=== PATIENT | male | born 1970 | race Caucasian/White ===

== ENCOUNTER 2019-08-19 18:04 | Inpatient (IN) ==
[2019-08-19 19:07] LABS: Basophils # (auto) 0.05 K/uL (0-0.2); Basophils % (auto) 0.4 %; Eosinophils # (auto) 0.23 K/uL (0-0.5); Hematocrit (blood only) 41.1 % (42-52); Hemoglobin 14.7 g/dL (14.0-18.0); Immature Granulocytes # (auto) 0.03 K/uL (0.00-0.02); Immature Granulocytes % (auto) 0.3 %; Lymphocytes # (auto) 2.78 K/uL (1.2-3.4); Mean Corpuscular Hemoglobin 32.1 pg (25-34); Mean Corpuscular Hgb Conc 35.8 g/dL (32-36); Mean Corpuscular Volume 89.7 fL (80-100); Mean Platelet Volume 9.3 fL (7.4-10.4); Monocytes # (auto) 0.93 K/uL (0.11-0.59); Neutrophils # (auto) 7.57 K/uL (1.4-6.5); Neutrophils % (auto) 65.3 %; Platelet Count 275 K/uL (130-400); RDW Coefficient of Variation 12.7 % (11.5-14.5); RDW Standard Deviation 41.6 fL (36.4-46.3); Red Blood Count 4.58 M/uL (4.7-6.1); White Blood Count 11.59 K/uL (4.8-10.8)
[2019-08-19 19:31] LABS: Acetaminophen < 2 ug/ml (10-30); Albumin Level 4.2 gm/dl (3.4-5.0); BUN Creatinine Ratio 16.7 (10-20); Calcium 9.6 mg/dl (8.5-10.1); Creatinine Clr Calc Pharmacy 71.7 ml/min; Est GFR (African American) 93.7; Est GFR (Non-African American) 80.9; Potassium 3.7 mmol/L (3.5-5.1); Salicylate < 1.7 mg/dl (2.8-20)
[2019-08-19 19:41] LABS: Albumin Globulin Ratio 1.3 (0.9-2); Bilirubin,Total 0.3 mg/dl (0.2-1); Globulin 3.3 gm/dl (2.5-4.0); Thyroid Stimulating Hormone 2.05 uIu/ml (0.300-4.500); Total Protein 7.5 gm/dl (6.4-8.2)
[2019-08-19 20:04] LABS: Appearance Urine Clear (Clear); Bilirubin Urine Negative (Negative); Blood Urine Negative (Negative); Color Urine Yellow; Glucose Urine UA Negative (Negative); Ketones Urine Trace (Negative); Leukocyte Esterase Urine Negative (Negative); Nitrite Urine Negative (Negative); Protein Urine Negative (Negative); Specific Gravity Urine 1.012 (1.000-1.030); Urobilinogen Urine Negative (Negative); pH Urine 5.5 (4.5-7.5)
[2019-08-19 20:46] LABS: Amphetamines+Metham, Urine Neg (Neg); Barbiturates, Urine Neg (Neg); Benzodiazepine, Urine Neg (Neg); Cocaine, Urine Neg (Neg); MDMA (Ecstacy), Urine Neg (Neg); Methadone, Urine Neg (Neg); Opiate, Urine Neg (Neg); Phencyclidine, Urine Neg (Neg)
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
[2019-08-19] MEDS ORDERED: LORazepam 1 MG TAB SL STA (22:54)
[2019-08-19] MEDS ORDERED: LORazepam 0.5 MG TAB ONE (22:56)
[2019-08-20] MEDS ORDERED: LORazepam 1 MG TAB ONE (00:58)
[2019-08-20] MEDS ORDERED: LORazepam 1 MG TAB SL STA (00:58)
[2019-08-20] MEDS ORDERED: BISMUTH SUBSALICYLATE PER ML OMNICELL CHARGE PO PRN (02:43)
[2019-08-20] MEDS ORDERED: ALUMINUM/MAGNESIUM SUSP 30 ML UDC PO PRN (02:43)
[2019-08-20] MEDS ORDERED: MAGNESIUM HYDROXIDE SUSP 30 ML UDC PO PRN (02:43)
[2019-08-20] MEDS ORDERED: SODIUM CHLORIDE 0.65% NA SOLN 45 ML (OCEAN) PRN (02:43)
[2019-08-20] MEDS: OLANZapine 5 MG TABLET PO PRN ×2 (07:14→13:17)
[2019-08-20] MEDS: ACETAMINOPHEN 325 MG TAB PO PRN (10:46)
--- NOTE | 2019-08-20 11:16 | History & Physical ---
Date of Service August 20, 2019 Impression / Recommendations Impression 49-year-old gentleman with what appears to be a long-standing history of mental illness who has so far never had contact with [facility] behavioral health, presently on a 302 commitment following ER presentation last evening for mental health evaluation. Admission labs are fairly unremarkable including drug screen. No imaging done. Patient demonstrating significant delusional preoccupation, hallucinations, and these are impacting his ability to appreciate his illness, circumstances, and to make informed treatment decisions. Patient may require medications over objection and we will proceed with second physician recommendation if necessary. Presently he requires inpatient psychiatric hospitalization for safety, monitoring, and treatment. (1) Psychosis: 08/20 -Patient admitted on an involuntary commitment to the behavioral health unit. He will be maintained on regular safety checks with twice daily vitals. We will initially try to minimize stimulation until he is able to appropriately interact in the milieu -I attempted to educate him about circumstances, implications of 302, and answer questions however pt poorly able to engage logically due to paranoia -will consider potential need for additional medical w/w as more becomes known - he does not appear to be in withdrawal. UDS negative. -We will offer olanzapine 5 mg p.o. twice daily for psychosis and 5mg q6h prn (DNE 20mg in 24h) -Will utilize Haldol 5 mg IM, 2 mg Ativan, 1 mg Cogentin every 6 hours as needed for behavioral emergency -We will expand database as able Psychosis type: unspecified psychosis type Qualified Code(s): F29 - Unspecified psychosis not due to a substance or known physiological condition (2) Hypertension: 08/20 -Denies history of hypertension. Significant BP elevation in the ER improved following Ativan -Twice daily vitals for now -We will temporarily offer Ativan 1 mg p.o. every 4 hours as needed for anxiety Inventory Assets Strengths: Medically healthy, able to communicate Needs: Provision of safety, medication management Risk Factors Assessment Male: Yes : Yes Health Problems: No Mental Health Diagnoses: Yes Previous Psychiatric Hospitalization: Yes Protective Factors Assessment : No Responsible for Young Children: No Employed: No Stable Relationships: No Supportive Family: No Good Rapport with Provider: No Psychiatric History Identifying Data KENDAL PAIGE is a 49-year-old M who currently lives alone and was admitted on 08/20/19 02:19 on a 302 involuntary commitment for psychosis. Chief Complaint "[]". History of Present Illness Patient admitted on a 302 involuntary commitment through the ER. Per ER note 08/19/2019, patient presented for mental health evaluation. Petitioning statement indicating patient uncommonly leaves his house, lost a lot of weight in the past month, plays loud music and screams. Reportedly calling people at a nearby car dealership "on [place] [employer]" recently and indicated that he was going to kill them. Police were called and then called again. The report is that he was provoking fights. Reportedly he believes others are spying on him with drones. Patient reported to ER provider that his neighbors were harassing him, that he can read their minds, he indicated a plot in his own mind to get rid of him. He believed his neighbor was employed by his father whom he does not talk to. Indicated that he has lived here for 3 years and needs to solve a case of a missing person whom he believes the spirit of and habits his home. He mentioned that he smoked cigarettes to get rid of demons. Stated that he is not a violent person but will fight if necessary. States he has killed 12 people in his mind. Reported multiple prior hospitalizations for sleep deprivation which she stated was due to technology. Only noted home medication was Propecia. Past medical history denied. Review of systems is negative. He was medically cleared apart from elevated blood pressure which improved significantly following 2 mg of Ativan. He was initially resistant to p.o. medications. Per ER physician, when informed of 302 he requested to be euthanized instead. When I was called about this patient overnight I advised he receive a dose of Zyprexa in the ER prior to transport to the unit due to his agitation, active psychosis, and unwillingness to comply with treatment recommendations in the ER however it appears he was brought up to the [facility] and did not receive the 5 mg of olanzapine until 0714 this morning. He has not been physically aggressive. His 302 is up on August 24 at 22:12. He is grossly psychotic with significant delusional thought content, paranoia, and this impacts his willingness to participate in psychiatric interview this morning. He asserts that I know more than I am telling him and seems in disbelief that I have never heard his name before. He asks me about Crystal Robert, the [employer] student who went missing many years ago now. He states that he is the reason that she went missing because he last saw her 2 years before she disappeared. He then later reports that he has seen her twice since she disappeared, once walking around town and once just her head on a shelf. He admits that this is unusual but offers no explanation. He also reports that her spirit is with him all the time, is with him presently. He expresses a belief that people can see through his eyes, make him say things and do things. He reports that this is happening all over [place] now and there is nothing to be done about it. He denies that he has been violent or hurt anyone however he later states that he is killed 12 people with his mind but that does not count because it cannot be proven. He describes stress at home as "coming to me" and seems to feel victimized by his neighbors. He reports that his neighbor "forced me to call him nigger over and over again and I am the one that ends up here?" He does not perceive need for mental health treatment. He endorses believe the people can read his thoughts. He describes systemized delusions about being a fighter and the [employer], being recruited by Shalonda from the band [employer], and that Jatin Quan now has killed people because of him. He states that there is nothing wrong with him, that he has no mental or physical health problems. He does acknowledge that he has seen a psychiatrist in the past in [place], last perhaps 3 years ago, but denies that he has needed medication for treatment. He states that it was very not nice to meet me today and seems to perceive that I am part of a conspiracy against him. Past Psychiatric History Previous Psych History: Unknown and patient presently unwilling to provide. Current Psychiatric Diagnosis: Psychosis NOS Outpatient Services: None Previous Psych Admissions: Denies this morning however he reported in the ER t hat he had previously been hospitalized for sleep deprivation Past Medication Trials: Declines to describe recollection of treatment Past Head Trauma/Neuro History History of Concussion/Seizure: No Allergies Allergy/AdvReac Type Severity Reaction Status Date / Time No Known Allergies Allergy Unverified 08/19/19 19:13 Home Medications Home Medications Medication Instructions Recorded Confirmed Type finasteride [Propecia] 1 mg PO DAILY 08/19/19 08/19/19 History Family History Family History of: Refuses To Discuss Family Mental Health History Comment: "They are all really bad people" Reports multiple family members with mental health issues but will not further describe Alcohol History Hx of Alcohol Use Over the Past 12 Months: Yes ("sometimes but not often") Smoking Use Have You Smoked or Used Tobacco Products in the Last 30 Days: Yes Smoking Status: Current some day smoker Substance History Hx of Prescription Med Misuse Over the Past 12 Months: No Hx of Over the Counter Med Misuse Over the Past 12 Months: No Hx of Inhalent Misuse Over the Past 12 Months: No Hx of Organic Substance Use Over the Past 12 Months: No Hx of Illegal Substances/Street Drug Use Over Past 12 Months: No Problems as a Result of Past Substance Use: None Identified Personal History Living Arrangements: Apartment ([facility]) Highest Grade Completed: College Employment Status: Unknown Beliefs That Will Affect Care: None Patient History Medical History Sleep deprivation Family History (Updated 08/20/19 @ 13:18 by Fortunato Mcdonald MD) Other Mental health problem Social History Preferred Language: Tajik Communication Ability: Effective Wringer And Setter Required: No Beliefs That Will Affect Care: None Feels Safe at Home: Yes Smoking Status: Current some day smoker Review of Systems Review of Systems: Unobtainable due to mental health condition (Patient felt to be an unreliable historian at present. He denies any pain or acute physical concerns but unwilling to participate in full review of systems) Physical Exam Psychiatric: Orientation: alert and + guarded; + uncooperative Apperance: + disheveled Eye Contact: + fair eye contact Motor Behavior: + psychomotor agitation Speech: + abnormal rate/rhythm/volume of speech (Speech is rapid, overproductive but not quite pressured) Affect: + angry affect Suspicious "I do not have a mood. I am happy all the time" Thought Process: + looseness of associations and + perseveration; + thought process not clear or coherent Thought Content: + paranoid, + delusions, + thought insertion and + thought broadcasting Suicidal Thoughts: denies suicidal thoughts Homicidal Thoughts: denies homicidal thoughts (He denies plan to harm others but reports ability to and states that God will take vengeance) He denies hallucinations however he appears to be responding to auditory hallucinations and describes lik anabell visual hallucinations Cognition: language grossly intact; + recent memory not intact, + remote memory not intact and + attention not intact Insight: + poor insight Judgement: + poor judgement Vital Signs (Past 24 Hours): Last Vital Signs Temp 36.3 C L 08/20/19 06:38 Pulse 107 H 08/20/19 06:38 Resp 16 08/20/19 06:38 BP 151/81 H 08/20/19 06:38 Pulse Ox 99 08/20/19 02:49 Results & Data Laboratory Results Laboratory Results - last 24 hr 08/19/19 08/19/19 08/19/19 18:48 18:48 18:48 WBC 11.59 H RBC 4.58 L Hgb 14.7 Hct 41.1 L MCV 89.7 MCH 32.1 MCHC 35.8 RDW Std Deviation 41.6 RDW Coeff of Tami 12.7 Plt Count 275 MPV 9.3 Immature Gran % (Auto) 0.3 Neut % (Auto) 65.3 Lymph % (Auto) 24.0 [place] % (Auto) 8.0 Eos % (Auto) 2.0 Baso % (Auto) 0.4 Immature Gran # (Auto) 0.03 H Neut # (Auto) 7.57 H Lymph # (Auto) 2.78 [place] # (Auto) 0.93 H Eos # (Auto) 0.23 Baso # (Auto) 0.05 Sodium 137 Potassium 3.7 Chloride 105 Carbon Dioxide 24 Anion Gap 8.0 BUN 18 Creatinine 1.06 Est Cr Clr Drug Dosing 71.7 Est GFR ( Amer) 93.7 Est GFR (Non-Af Amer) 80.9 BUN/Creatinine Ratio 16.7 Glucose 95 Calcium 9.6 Total Bilirubin 0.3 AST 30 ALT 32 Alkaline Phosphatase 48 Total Protein 7.5 Albumin 4.2 Globulin 3.3 Albumin/Globulin Ratio 1.3 TSH 2.050 Urine Color Urine Appearance Urine pH Ur Specific [place] Urine Protein Urine Glucose (UA) Urine Ketones Urine Blood Urine Nitrite Urine Bilirubin Urine Urobilinogen Ur Leukocyte Esterase Salicylates < 1.7 L Urine Opiates Screen Ur Methadone, Qual Acetaminophen < 2 L Urine Barbiturates Ur Phencyclidine (PCP) U Amphetamin/Meth Scrn MDMA (Ecstasy) Screen U Benzodiazepines Scrn Ur Cocaine Metabolite U Marijuana (THC) Screen Ethyl Alcohol mg/dL 08/19/19 08/19/19 08/19/19 18:48 19:40 19:40 WBC RBC Hgb Hct MCV MCH MCHC RDW Std Deviation RDW Coeff of Tami Plt Count MPV Immature Gran % (Auto) Neut % (Auto) Lymph % (Auto) [place] % (Auto) Eos % (Auto) Baso % (Auto) Immature Gran # (Auto) Neut # (Auto) Lymph # (Auto) [place] # (Auto) Eos # (Auto) Baso # (Auto) Sodium Potassium Chloride Carbon Dioxide Anion Gap BUN Creatinine Est Cr Clr Drug Dosing Est GFR ( Amer) Est GFR (Non-Af Amer) BUN/Creatinine Ratio Glucose Calcium Total Bilirubin AST ALT Alkaline Phosphatase Total Protein Albumin Globulin Albumin/Globulin Ratio TSH Urine Color Yellow Urine Appearance Clear Urine pH 5.5 Ur Specific [place] 1.012 Urine Protein Negative Urine Glucose (UA) Negative Urine Ketones Trace H Urine Blood Negative Urine Nitrite Negative Urine Bilirubin Negative Urine Urobilinogen Negative Ur Leukocyte Esterase Negative Salicylates Urine Opiates Screen Neg Ur Methadone, Qual Neg Acetaminophen Urine Barbiturates Neg Ur Phencyclidine (PCP) Neg U Amphetamin/Meth Scrn Neg MDMA (Ecstasy) Screen Neg U Benzodiazepines Scrn Neg Ur Cocaine Metabolite Neg U Marijuana (THC) Screen Neg Ethyl Alcohol mg/dL < 3.0 Current Inpatient Medications Current Inpatient Medications: Current Inpatient Medications Acetaminophen (Tylenol) 650 mg PO Q4H PRN PRN Reason: Headache or Minor Fever Stop: 09/19/19 02:42 Last Admin: 08/20/19 10:46 Dose: 650 mg Documented by: Al Hydrox/Mg Hydrox/Simethicone (Maalox) 30 ml PO Q4H PRN PRN Reason: GI Upset Stop: 09/19/19 02:42 Bismuth Subsalicylate (Kaopectate) 15 ml PO PRN PRN PRN Reason: Loose Stool Stop: 09/19/19 02:42 Hydroxyzine HCl (Vistaril) 50 mg PO HSZ PRN PRN Reason: Insomnia Stop: 09/19/19 02:49 Hydroxyzine HCl (Vistaril) 25 mg PO Q4H PRN PRN Reason: Anxiety Stop: 09/19/19 02:42 Magnesium Hydroxide (Milk Of Magnesia) 30 ml PO DAILY PRN PRN Reason: Constipation Stop: 09/19/19 02:42 Olanzapine (Zyprexa) 5 mg PO Q6 PRN PRN Reason: Psychosis Stop: 09/19/19 05:59 Last Admin: 08/20/19 07:14 Dose: 5 mg Documented by: Sodium Chloride ([place] Nasal) 1 - 2 sprays NA PRN PRN PRN Reason: Nasal Dryness/Congestion Stop: 09/19/19 02:42
[2019-08-20] MEDS ORDERED: LORazepam 1 MG TAB PO PRN (13:31)
[2019-08-20] MEDS ORDERED: BENZTROPINE MESYLATE 1 MG/ML 2 ML AMP IM PRN (13:32)
[2019-08-20] MEDS ORDERED: HALOPERIDOL LACTATE 5 MG/ML 1 ML VIAL IM PRN (13:32)
[2019-08-20] MEDS ORDERED: LORazepam 2 MG/ML VIAL (IM USE) IM PRN (13:32)
[2019-08-20] MEDS: OLANZapine 5 MG TABLET PO SCH (22:26)
[2019-08-21] MEDS: ACETAMINOPHEN 325 MG TAB PO PRN (03:51)
--- NOTE | 2019-08-21 09:34 | Psychiatric Progress Note ---
Date of Service August 21, 2019 Impression / Recommendations Impression 49-year-old gentleman with what appears to be a long-standing history of mental illness who has so far never had contact with [facility] behavioral health, presently on a 302 commitment following ER presentation last evening for mental health evaluation. Admission labs are fairly unremarkable including drug screen. No imaging done. Patient demonstrating significant delusional preoccupation, hallucinations, and these are impacting his ability to appreciate his illness, circumstances, and to make informed treatment decisions. Patient may require medications over objection and we will proceed with second physician recommendation if necessary. Presently he requires inpatient psychiatric hospitalization for safety, monitoring, and treatment. (1) Psychosis: 08/20 -Patient admitted on an involuntary commitment to the behavioral health unit. He will be maintained on regular safety checks with twice daily vitals. We will initially try to minimize stimulation until he is able to appropriately interact in the milieu -I attempted to educate him about circumstances, implications of 302, and answer questions however pt poorly able to engage logically due to paranoia -will consider potential need for additional medical w/w as more becomes known - he does not appear to be in withdrawal. UDS negative. -We will offer olanzapine 5 mg p.o. twice daily for psychosis and 5mg q6h prn (DNE 20mg in 24h) -Will utilize Haldol 5 mg IM, 2 mg Ativan, 1 mg Cogentin every 6 hours as needed for behavioral emergency -We will expand database as able 08/21 - Unfortunately patient appears likely to refuse antipsychotic treatment and may ultimately require medications over objection. Presently, in my opinion, the patient is felt to lack the capacity to make informed treatment decisions due to psychosis and associated delusional/illogical thought process and content. In my opinion medications over objection would be a reasonable and appropriate treatment intervention at this time. - will offer ativan 0.5mg po qhs tonight for sleep/agitation (2) Hypertension: 08/20 -Denies history of hypertension. Significant BP elevation in the ER improved following Ativan -Twice daily vitals for now -We will temporarily offer Ativan 1 mg p.o. every 4 hours as needed for anxiety 08/21 -As above, patient refusing medications at present but agrees to consider antihypertensive if blood pressure remains elevated this evening at which time we could consider a beta-bernie or PHILLY inhibitor if he is willing Inventory Assets Strengths: Medically healthy, able to communicate Needs: Provision of safety, medication management Risk Factors Assessment Male: Yes : Yes Health Problems: No Mental Health Diagnoses: Yes Previous Psychiatric Hospitalization: Yes Protective Factors Assessment : No Responsible for Young Children: No Employed: No Stable Relationships: No Supportive Family: No Good Rapport with Provider: No Interval History Chief Complaint "I am being attacked". Review of Systems Notes denies ETOH use at home Sleep Information Total Hours of Sleep: 7.5 Sleep Comments: half of total sleep on 11-29 and half on 07-28 up to the bathroom multiple times Meal Information Percent Meal Consumed - Breakfast: 100 Percent Meal Consumed - Lunch: 100 Percent Meal Consumed - Dinner: 75 Subjective Subjective Patient was seen & assessed and interval progress reviewed with treatment team. Per staff, patient tolerated group poorly yesterday. Became more paranoid, agitated, received people in the group and staff were trying to fight him. He did not become physically aggressive. Blood pressures have been elevated. He was compliant with nighttime olanzapine yesterday but refused this morning. He is interviewed in the hallway in the company of nursing with whom he was engaged in a discussion demanding to call the police because he is being intact. States that he is being threatened by another patient and staff here. He is illogical in his description of this and this is clearly in line with his paranoia demonstrated since time of admission. He was not easily reassured and after conversation he states "now you are attacking me too." He indicates that he plans to refuse medication today except for one half of an Ativan at bedtime to help him sleep. He indicates perception that we are trying to "overdose him" on Zyprexa. Attempted to educate him about risks associated with blood pressure elevation however he was dismissive. He states that he is perfectly healthy and how can he have trouble with his heart? He ultimately agreed to consider an antihypertensive "that does not affect my head" if his blood pressure remains elevated this evening. Physical Exam Psychiatric Orientation: alert and + guarded; + uncooperative Apperance: appropriately dressed, appropriately groomed and appeared stated age Eye Contact: good eye contact Motor Behavior: + psychomotor agitation (standing in hurt[place] w/ arms crossed); + abnormal motor movements and n akathisia Speech: + abnormal rate/rhythm/volume of speech (Speech is clear but loud and repetitive) Affect: + angry affect and + constricted affect Mood: + angry mood Thought Process: + perseveration; + thought process not clear or coherent Thought Content: + paranoid, + delusions and + persecution Cognition: language grossly intact; + recent memory not intact, + remote memory not intact and + attention not intact Insight: + poor insight Judgement: + poor judgement Vital Signs (Past 24 Hours) Last Vital Signs Temp 36.6 C 08/21/19 06:00 Pulse 65 08/21/19 06:00 Resp 18 08/21/19 06:00 BP 152/110 H 08/21/19 06:00 Pulse Ox 99 08/20/19 02:49 Results & Data Current Inpatient Medications Current Inpatient Medications: Current Inpatient Medications Acetaminophen (Tylenol) 650 mg PO Q4H PRN PRN Reason: Headache or Minor Fever Stop: 09/19/19 02:42 Last Admin: 08/21/19 03:51 Dose: 650 mg Documented by: Al Hydrox/Mg Hydrox/Simethicone (Maalox) 30 ml PO Q4H PRN PRN Reason: GI Upset Stop: 09/19/19 02:42 Benztropine Mesylate (Cogentin) 1 mg IM Q6H PRN PRN Reason: behavoral emergency Stop: 09/19/19 13:44 Bismuth Subsalicylate (Kaopectate) 15 ml PO PRN PRN PRN Reason: Loose Stool Stop: 09/19/19 02:42 Haloperidol Lactate (Haldol) 5 mg IM Q6H PRN PRN Reason: behavioral emergency Stop: 09/19/19 13:31 Hydroxyzine HCl (Vistaril) 50 mg PO HSZ PRN PRN Reason: Insomnia Stop: 09/19/19 02:49 Hydroxyzine HCl (Vistaril) 25 mg PO Q4H PRN PRN Reason: Anxiety Stop: 09/19/19 02:42 Lorazepam (Ativan) 1 mg PO Q4H PRN PRN Reason: Anxiety Stop: 09/19/19 13:30 Lorazepam (Ativan) 2 mg IM Q6H PRN PRN Reason: behavioral emergency Stop: 09/19/19 13:44 Magnesium Hydroxide (Milk Of Magnesia) 30 ml PO DAILY PRN PRN Reason: Constipation Stop: 09/19/19 02:42 Olanzapine (Zyprexa) 5 mg PO Q6 PRN PRN Reason: Psychosis Stop: 09/19/19 05:59 Last Admin: 08/20/19 13:17 Dose: 5 mg Documented by: Olanzapine (Zyprexa) 5 mg PO BID KRISH Stop: 09/19/19 20:59 Last Admin: 08/20/19 22:26 Dose: 5 mg Documented by: Sodium Chloride ([place] Nasal) 1 - 2 sprays NA PRN PRN PRN Reason: Nasal Dryness/Congestion Stop: 09/19/19 02:42 (1) Psychosis Psychosis type: unspecified psychosis type Qualified Code(s): F29 - Unspecified psychosis not due to a substance or known physiological condition
[2019-08-21] MEDS: OLANZapine 5 MG TABLET PO SCH ×2 (09:38→22:11)
[2019-08-21] MEDS: LORazepam 0.5 MG TAB PO SCH (22:12)
[2019-08-22] MEDS: ACETAMINOPHEN 325 MG TAB PO PRN (06:55)
[2019-08-22] MEDS: OLANZapine 5 MG TABLET PO SCH ×2 (08:43→21:17)
--- NOTE | 2019-08-22 08:58 | Psychiatric Progress Note ---
Date of Service August 22, 2019 Impression / Recommendations Impression 49-year-old gentleman with what appears to be a long-standing history of mental illness who has not been seen in this facility before, presented on a 302 warrant with significant delusional preoccupation, paranoia, agitation, and hallucinations, for which she was involuntarily admitted. He is received 1 dose of olanzapine, but has refused medications for the past 2 days. He has been agitated and uncooperative, getting into verbal altercations with staff and peers, and has not been able to tolerate groups due to behavioral dyscontrol. He lacks insight and is unable to make informed treatment decisions. We will file for a 303 hearing for tomorrow and agree with medications over objection, for which Dr. Mcdonald gave the initial opinion yesterday. Inpatient psychiatric hospitalization remains medically necessary for safety, monitoring, and treatment. (1) Psychosis: 08/20 -Patient admitted on an involuntary commitment to the behavioral health unit. He will be maintained on regular safety checks with twice daily vitals. We will initially try to minimize stimulation until he is able to appropriately interact in the milieu -I attempted to educate him about circumstances, implications of 302, and answer questions however pt poorly able to engage logically due to paranoia -will consider potential need for additional medical w/w as more becomes kn own - he does not appear to be in withdrawal. UDS negative. -We will offer olanzapine 5 mg p.o. twice daily for psychosis and 5mg q6h prn (DNE 20mg in 24h) -Will utilize Haldol 5 mg IM, 2 mg Ativan, 1 mg Cogentin every 6 hours as needed for behavioral emergency -We will expand database as able 08/21 - Unfortunately patient appears likely to refuse antipsychotic treatment and may ultimately require medications over objection. Presently, in my opinion, the patient is felt to lack the capacity to make informed treatment decisions due to psychosis and associated delusional/illogical thought process and content. In my opinion medications over objection would be a reasonable and appropriate treatment intervention at this time. - will offer ativan 0.5mg po qhs tonight for sleep/agitation 08/22 -Patient remains delusional, paranoid, and easily agitated. He is refusing all medications. -File for 303 hearing to be held tomorrow. Agree with medications over objection, as he lacks capacity given complete lack of insight into the presence of mental illness, irritability/agitation and inability to engage in the risks and benefits of treatment, ongoing delusions which are directing his behavior, and inability to provide for his own basic needs/safety without the care and assistance of others. Will order IM olanzapine for refusal of p.o. once he is on a 303 involuntary commitment per policy. -Continue MNPR. -Patient reports his mother lives locally, but is refusing to sign a release or allow staff to contact her. Continue to explore sources of collateral information/past treatment information. (2) Hypertension: 08/20 -Denies history of hypertension. Significant BP elevation in the ER improved following Ativan -Twice daily vitals for now -We will temporarily offer Ativan 1 mg p.o. every 4 hours as needed for anxiety 08/21 -As above, patient refusing medications at present but agrees to consider antihypertensive if blood pressure remains elevated this evening at which time we could consider a beta-bernie or PHILLY inhibitor if he is willing 08/22 -Patient remains mildly hypertensive (149/98), and continues to refuse antihypertensive medication. Inventory Assets Strengths: Medically healthy, able to communicate Needs: Provision of safety, medication management Risk Factors Assessment Male: Yes : Yes Health Problems: No Mental Health Diagnoses: Yes Previous Psychiatric Hospitalization: Yes Protective Factors Assessment : No Responsible for Young Children: No Employed: No Stable Relationships: No Supportive Family: No Good Rapport with Provider: No Interval History Identifying Information KENDAL PAIGE is a 49-year-old M who currently lives alone and was admitted on 08/20/19 02:19 on a 302 involuntary commitment for psychosis. Chief Complaint "I'm not doing well at all". Review of Systems Sleep Information Total Hours of Sleep: 5.5 Sleep Comments: half of total sleep on 11-29 and half on 07-28 up to the bathroom multiple times Meal Information Percent Meal Consumed - Breakfast: 100 Percent Meal Consumed - Lunch: 100 Percent Meal Consumed - Dinner: 100 Subjective Subjective Patient was seen & assessed and interval progress reviewed with treatment team. Staff report he is refusing scheduled Zyprexa, threatening to estella staff in the hospital for giving him medicine, quickly becomes agitated, and threatened to call 911. He said he did not need Zyprexa because his blood pressure was fine, and refused staff's attempts to provide education about the medication. He has refused medications for the past 2 days. He is eating well, but has had poor behavioral control, so has been excused from groups. He got into a verbal altercation with a peer yesterday, and had to be de-escalated by staff. He stated that he did not care if he , as he has already lived for 51 years, and requested that staff euthanize him. On my assessment, he states that he was "falsely accused of making threats against others, my neighbor started a fight with me, then got scared so reported me. He sicked his dogs on me, they were afraid of me." He initially denies that he has a mental illness, but later states he has PTSD, bipolar disorder, and had "a break with reality." He reports at least 5 previous hospitalizations, and states he has lived in [facility] , and has never stayed anywhere for more than a few years. He states he is unemployed and lives off of an inheritance. 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 They said I was having a break with reality." He states that he has been living here for 3 years, but has no friends. His mother lives in [place], but he says he wants to talk to her or allow us to talk to her because "she is psychotic." He says he came to this area because he is "looking for information on the missing person case, Crystal Robert, she was my friend. People here are lying about the case." He says that his friend was the person who the movie the Sixth Sense was based off of. He denies hallucinations and thoughts of harming others, and when asked about his mood, says "I don't have moods. I'm never angry, never irrational. I have feelings, I'm being antagonized, victimized by my neighbors, they're jealous that I don't work." He says he requested to be euthanized because "I can't live like this any longer. If the [facility] doesn't want me, just euthanize me." He states he does not have a mental illness and does not need treatment, and is going to refuse to take medication. He states that if he was discharged, he would "keep to myself and not interact with people across the street or neighbors." Explained the involuntary commitment, plan to file for a 303 involuntary commitment, and current treatment recommendations; patient became increasingly agitated, repeatedly interrupting, and asking me to leave the room. Summary of Past History He reports a history of multiple previous medication trials, including lorazepam, clonazepam, sertraline, and Depakote; and says he cannot take Zyprexa as it is similar to Ativan. He said he previously saw a therapist at [facility], and when asked why, says "because my parents thought I needed to see a therapist, because they were in denial," but stopped going. Reports at least 5 previous psychiatric hospitalizations for "PTSD, tessy, a break from reality." Reports he had a medical marijuana card and had been using THC products regularly for the past year, last use 1 week ago. States he stopped because it was not helping. Physical Exam Psychiatric Orientation: alert; + uncooperative Apperance: appropriately dressed and appropriately groomed Casually dressed in jeans, slip on sneakers, hair slipped back. Seated in no acute distress Eye Contact: good eye contact (Staring) Motor Behavior: no abnormal motor movements Angry, irritated tone Affect: + irritable affect "Antagonized, victimized" Thought Process: + perseveration Thought Content: + preoccupation (With persecution by others), + paranoid, + delusions, + ideas of reference and + persecution Suicidal Thoughts: + reports suicidal thoughts Requesting to be euthanized Homicidal Thoughts: denies homicidal thoughts Hallucinations: no auditory hallucinations and no visual hallucinations Cognition: attention grossly intact and language grossly intact Insight: + severely impaired insight Judgement: + severely impaired judgement Vital Signs (Past 24 Hours) Last Vital Signs Temp 36.3 C L 08/22/19 06:00 Pulse 89 08/22/19 06:00 Resp 18 08/21/19 06:00 BP 128/81 08/22/19 06:00 Pulse Ox 99 08/20/19 02:49 Results & Data Current Inpatient Medications Current Inpatient Medications: Current Inpatient Medications Acetaminophen (Tylenol) 650 mg PO Q4H PRN PRN Reason: Headache or Minor Fever Stop: 09/19/19 02:42 Last Admin: 08/22/19 06:55 Dose: 650 mg Documented by: Al Hydrox/Mg Hydrox/Simethicone (Maalox) 30 ml PO Q4H PRN PRN Reason: GI Upset Stop: 09/19/19 02:42 Benztropine Mesylate (Cogentin) 1 mg IM Q6H PRN PRN Reason: behavoral emergency Stop: 09/19/19 13:44 Bismuth Subsalicylate (Kaopectate) 15 ml PO PRN PRN PRN Reason: Loose Stool Stop: 09/19/19 02:42 Haloperidol Lactate (Haldol) 5 mg IM Q6H PRN PRN Reason: behavioral emergency Stop: 09/19/19 13:31 Hydroxyzine HCl (Vistaril) 50 mg PO HSZ PRN PRN Reason: Insomnia Stop: 09/19/19 02:49 Hydroxyzine HCl (Vistaril) 25 mg PO Q4H PRN PRN Reason: Anxiety Stop: 09/19/19 02:42 Lorazepam (Ativan) 1 mg PO Q4H PRN PRN Reason: Anxiety Stop: 09/19/19 13:30 Lorazepam (Ativan) 2 mg IM Q6H PRN PRN Reason: behavioral emergency Stop: 09/19/19 13:44 Lorazepam (Ativan) 0.5 mg PO HS KRISH Stop: 09/20/19 21:59 Last Admin: 08/21/19 22:12 Dose: Not Given Documented by: Magnesium Hydroxide (Milk Of Magnesia) 30 ml PO DAILY PRN PRN Reason: Constipation Stop: 09/19/19 02:42 Olanzapine (Zyprexa) 5 mg PO Q6 PRN PRN Reason: Psychosis Stop: 09/19/19 05:59 Last Admin: 08/20/19 13:17 Dose: 5 mg Documented by: Olanzapine (Zyprexa) 5 mg PO BID KRISH Stop: 09/19/19 20:59 Last Admin: 08/22/19 08:43 Dose: Not Given Documented by: Sodium Chloride ([place] Nasal) 1 - 2 sprays NA PRN PRN PRN Reason: Nasal Dryness/Congestion Stop: 09/19/19 02:42 (1) Psychosis Psychosis type: unspecified psychosis type Qualified Code(s): F29 - Unspecified psychosis not due to a substance or known physiological condition
[2019-08-22] MEDS: LORazepam 0.5 MG TAB PO SCH (21:15)
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
[2019-08-23] MEDS: OLANZapine 5 MG TABLET PO SCH ×2 (08:43→21:29)
[2019-08-23] MEDS ORDERED: OLANZapine 10 MG/2.1 ML SDV IM PRN (10:31)
[2019-08-24] MEDS: OLANZapine 5 MG TABLET PO SCH ×2 (08:56→21:35)
--- NOTE | 2019-08-24 12:35 | Psychiatric Progress Note ---
Date of Service August 24, 2019 Impression / Recommendations Impression 49-year-old gentleman with what appears to be a long-standing history of schizophrenia, multiple previous inpatient hospitalizations, and noncompliance with outpatient treatment who presented on a 302 warrant with significant delusional preoccupation, delusions of reference, grandiosity paranoia, agitation, and hallucinations, for which he was involuntarily admitted. He has been refusing medication and lacks insight into his illness or the need for treatment. He is on a 303 involuntary commitment, and we will initiate medications over objection. He will remain in a private room due to his psychosis and delusions of persecution, recent agitation and threats to harm others, and poor behavioral control. He will likely require an involuntary outpatient commitment. Inpatient psychiatric hospitalization remains medically necessary for safety, monitoring, and treatment. (1) Schizophrenia: 08/20 -Patient admitted on an involuntary commitment to the behavioral health unit. He will be maintained on regular safety checks with twice daily vitals. We will initially try to minimize stimulation until he is able to appropriately interact in the milieu -I attempted to educate him about circumstances, implications of 302, and answer questions however pt poorly able to engage logically due to paranoia -will consider potential need for additional medical w/w as more becomes known - he does not appear to be in withdrawal. UDS negative. -We will offer olanzapine 5 mg p.o. twice daily for psychosis and 5mg q6h prn (DNE 20mg in 24h) -Will utilize Haldol 5 mg IM, 2 mg Ativan, 1 mg Cogentin every 6 hours as needed for behavioral emergency -We will expand database as able 08/21 - Unfortunately patient appears likely to refuse antipsychotic treatment and may ultimately require medications over objection. Presently, in my opinion, the patient is felt to lack the capacity to make informed treatment decisions due to psychosis and associated delusional/illogical thought process and content. In my opinion medications over objection would be a reasonable and appropriate treatment intervention at this time. - will offer ativan 0.5mg po qhs tonight for sleep/agitation 08/22 -Patient remains delusional, paranoid, and easily agitated. He is refusing all medications. -File for 303 hearing to be held tomorrow. Agree with medications over objection, as he lacks capacity given complete lack of insight into the presence of mental illness, irritability/agitation and inability to engage in the risks and benefits of treatment, ongoing delusions which are directing his behavior, and inability to provide for his own basic needs/safety without the care and assistance of others. Will order IM olanzapine for refusal of p.o. once he is on a 303 involuntary commitment per policy. -Continue MNPR. -Patient reports his mother lives locally, but is refusing to sign a release or allow staff to contact her. Continue to explore sources of collateral information/past treatment information. 08/23 -Previous records indicate history of paranoid Schizophrenia diagnosed years ago. Patient has been chronically noncompliant with treatment, and lacks all insight into his condition. -303 hearing held and granted. As 2 physicians have given an opinion in favor of medications over objection, will start olanzapine 5mg IM for refusal of 5mg bid PO. Although patient states he is allergic to this medication, he is not, as he has tolerated numerous doses during this hospital stay, with a reported effect of sedation, which she has been informed is not uncommon with this medication. He has been advised that if there are other antipsychotics he would be willing to take, we could try them, but has either declined to state what medications he has been on in the past, or at other times has denied ever taking antipsychotics. -He will likely require a 304 involuntary outpatient commitment. We will notify the [facility] and requests that a M be assigned. He will also need [facility] assistance for psychiatric care and therapy. -Continue to encourage him to allow involvement of family, which he has consistently declined both here and during previous outpatient treatment at [facility]. 08/24 - Continue scheduled dosing of olanzapine 5mg BID; patient reporting it "helps me function", but unwilling to discuss further titration of the dose - Pt verbalizes willingness to continue medication after discharge; but is refusing to apply for MA, and has specific providers in mind - making referrals difficult at this time - It is likely that patient will require a 304 outpatient commitment in order to ensure outpatient follow-up given the current barriers he is placing in this process - Continue to gather collateral information as available - Continue MNPR, as patient continues to be delusional - stating "if they don't (2) Anxiety: 08/23 -history of anxiety NOS, through which she has previously taken benzodiazepines. Due to the risk of IM Zyprexa with benzodiazepine, will hold lorazepam for now. If his compliance improves and he is taking olanzapine orally, could consider resuming it if needed. (3) Hypertension: 08/20 -Denies history of hypertension. Significant BP elevation in the ER improved following Ativan -Twice daily vitals for now -We will temporarily offer Ativan 1 mg p.o. every 4 hours as needed for anxiety 08/21 -As above, patient refusing medications at present but agrees to consider antihypertensive if blood pressure remains elevated this evening at which time we could consider a beta-bernie or PHILLY inhibitor if he is willing 08/22 -Patient remains mildly hypertensive (149/98), and continues to refuse antihypertensive medication. 08/23 -BP has normalized. Inventory Assets Strengths: Medically healthy, able to communicate Needs: Provision of safety, medication management Risk Factors Assessment Male: Yes : Yes Health Problems: No Mental Health Diagnoses: Yes Previous Psychiatric Hospitalization: Yes Protective Factors Assessment : No Responsible for Young Children: No Employed: No Stable Relationships: No Supportive Family: No Good Rapport with Provider: No Interval History Identifying Information KENDAL PAIGE is a 49-year-old M who currently lives alone and was admitted on 08/20/19 02:19 on a 302 involuntary commitment for psychosis. Chief Complaint "I'm doing fine, is it you that I talk to about the injustices in coming here? There was no proof given by my neighbor, this is unlawful." Review of Systems Notes Constitutional: denied Cardiovascular: denied Respiratory: denied Gastrointestinal: denied Neurological: denied Psychiatric: denies symptoms other than stated above Total of at least 10 systems reviewed, pertinent positives as above and in HPI. Sleep Information Total Hours of Sleep: 6.75 Sleep Comments: half of total sleep on 11-29 and half on 07-28 up to the bathroom multiple times Meal Information Percent Meal Consumed - Breakfast: 100 Percent Meal Consumed - Lunch: 100 Percent Meal Consumed - Dinner: 100 Subjective Subjective Patient was seen & assessed and interval progress reviewed with treatment team. Staff report the patient admitting to having contact with his mother via phone last evening, he continues to refuse SHERRI for us to share information regarding his admission. Mother did call in to provide additional history, aware that no information could be provided without signed release. Pt reportedly requested IM olanzapine yesterday morning, and after not experiencing side effects has been reporting willingness for PO medications. Pt was seen today to assess progress since admission. He states that he is feeling frustrated today, and is largely focused on his neighbor's involvement in his 302 commitment. He states that he is learning, "what you guys want from me, what will make you happy." He states, "I'm doing what I have to, I think I am thinking better at least." Pt initially implies that the olanzapine has been helpful for his thought process; however, later states "the 10 milligrams [olanzapine] is for you, not me. I don't need this, you need me to take this." Pt continues to verbalize paranoid delusional beliefs, stating he is not willing to apply for medical assistance "through the government." He is willing to continue medication and meet with a therapist and psychiatrist, but does not seem to understand the importance of medical insurance in making these referrals. Pt verbalized several other statements, including his time being raised in a "Satanic cult", learning about the "entire universe within the stomach of a cow", and the prior research study he was in with "my other olanzapine friends" - stating he was informed during this "50 day hospitalization" that "I indeed to no have any signs of schizophrenia so I shouldn't be able to be here without proof of harm to myself." He states he was informed he had "genius IQ, that I could be anything I wanted - specifically an astronaut, or a doctor." Pt denies any other needs from his treatment here, stating he is simply "playing by the rules" until he is released to go home. Physical Exam Psychiatric Orientation: alert, oriented x 3 and cooperative (superficially, continues to be argumentative but better behavioral control) Apperance: appropriately dressed (casually, in long-sleeve t-shirt and jeans), appropriately groomed and appeared stated age Eye Contact: good eye contact Motor Behavior: steady gait and station and no abnormal motor movements Speech: + abnormal rate/rhythm/volume of speech (overproductive, pressured ) Does seemingly demonstrate improved reciprocity in conversation Affect: + irritable affect and mood congruent with affect Mood: + irritable mood Thought Content: + preoccupation (with discharge and neighbor's involvement in 302 process), + paranoid (believing several staff members have direct connections to his family) and + delusions (grandiosity) Suicidal Thoughts: denies suicidal thoughts Homicidal Thoughts: denies homicidal thoughts Hallucinations: no auditory hallucinations and no visual hallucinations Patient denies A/V hallucinations presently Cognition: attention grossly intact and language grossly intact Insight: + severely impaired insight Judgement: + severely impaired judgement Vital Signs (Past 24 Hours) Last Vital Signs Temp 36.4 C L 08/24/19 06:53 Pulse 90 08/24/19 06:53 Resp 18 08/24/19 06:53 BP 131/84 08/24/19 06:53 Pulse Ox 98 08/22/19 20:27 Results & Data Current Inpatient Medications Current Inpatient Medications: Current Inpatient Medications Acetaminophen (Tylenol) 650 mg PO Q4H PRN PRN Reason: Headache or Minor Fever Stop: 09/19/19 02:42 Last Admin: 08/22/19 06:55 Dose: 650 mg Documented by: Al Hydrox/Mg Hydrox/Simethicone (Maalox) 30 ml PO Q4H PRN PRN Reason: GI Upset Stop: 09/19/19 02:42 Benztropine Mesylate (Cogentin) 1 mg IM Q6H PRN PRN Reason: behavoral emergency Stop: 09/19/19 13:44 Bismuth Subsalicylate (Kaopectate) 15 ml PO PRN PRN PRN Reason: Loose Stool Stop: 09/19/19 02:42 Haloperidol Lactate (Haldol) 5 mg IM Q6H PRN PRN Reason: behavioral emergency Stop: 09/19/19 13:31 Hydroxyzine HCl (Vistaril) 50 mg PO HSZ PRN PRN Reason: Insomnia Stop: 09/19/19 02:49 Hydroxyzine HCl (Vistaril) 25 mg PO Q4H PRN PRN Reason: Anxiety Stop: 09/19/19 02:42 Magnesium Hydroxide (Milk Of Magnesia) 30 ml PO DAILY PRN PRN Reason: Constipation Stop: 09/19/19 02:42 Olanzapine (Zyprexa) 5 mg PO Q6 PRN PRN Reason: Psychosis Stop: 09/19/19 05:59 Last Admin: 08/20/19 13:17 Dose: 5 mg Documented by: Olanzapine (Zyprexa) 5 mg PO BID KRISH Stop: 09/19/19 20:59 Last Admin: 08/24/19 08:56 Dose: 5 mg Documented by: Olanzapine (Zyprexa) 5 mg IM BID PRN PRN Reason: refusal of PO Stop: 09/22/19 10:30 Last Admin: 08/23/19 11:13 Dose: 5 mg Documented by: Sodium Chloride (Randall Nasal) 1 - 2 sprays NA PRN PRN PRN Reason: Nasal Dryness/Congestion Stop: 09/19/19 02:42 (1) Schizophrenia Schizophrenia type: paranoid schizophrenia Qualified Code(s): F20.0 - Paranoid schizophrenia
[2019-08-25] MEDS: OLANZapine 5 MG TABLET PO SCH ×2 (08:36→20:50)
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
[2019-08-26] MEDS: OLANZapine 5 MG TABLET PO SCH (08:15)
--- NOTE | 2019-08-26 16:46 | Psychiatric Progress Note ---
Date of Service August 26, 2019 Impression / Recommendations Impression 49-year-old gentleman with a long-standing history of schizophrenia versus schizoaffective disorder, multiple previous inpatient hospitalizations, and noncompliance with outpatient treatment who presented on a 302 warrant with significant delusional preoccupation, delusions of reference and grandiosity paranoia, agitation, and hallucinations, for which he was involuntarily admitted. He has been refusing medication and lacks insight into his illness or the need for treatment. He is on a 303 involuntary commitment with medications over objection. He will remain in a private room due to his psychosis and de lusions of persecution, ongoing agitation and threats to harm others, and poor behavioral control. We have filed for 304 hearing. Medication over objection has been ordered, but the patient, so far, has been cooperative with Zyprexa. Today, he asked me as a "psychopharmacologist" what dose of olanzapine I would recommend, and when I told him that I would suggest that we titrate ("increase") the dose gradually, as tolerated, and that I would start with 5 mg in the morning and 10 mg at bedtime, the patient nodded and said "that sounds good to me." He seemed very invested in telling us that his goal is to cooperate fully with treatment and he emphasized that he wants us to know that he will take whatever medications we recommend that he take on an outpatient basis upon discharge. In fact, he asked me to order his outpatient medications now "so they will be ready whenever I get discharge, even if that is not for a while." This patient is known to me, and it should be understood that assurances of this nature by him cannot be considered reliable. At the same time, the patient's behavior has become under better control and he is emotionally less labile. (1) Schizophrenia: 08/20 -Patient admitted on an involuntary commitment to the behavioral health unit. He will be maintained on regular safety checks with twice daily vitals. We prashant l initially try to minimize stimulation until he is able to appropriately interact in the milieu -I attempted to educate him about circumstances, implications of 302, and answer questions however pt poorly able to engage logically due to paranoia -will consider potential need for additional medical w/w as more becomes known - he does not appear to be in withdrawal. UDS negative. -We will offer olanzapine 5 mg p.o. twice daily for psychosis and 5mg q6h prn (DNE 20mg in 24h) -Will utilize Haldol 5 mg IM, 2 mg Ativan, 1 mg Cogentin every 6 hours as needed for behavioral emergency -We will expand database as able 08/21 - Unfortunately patient appears likely to refuse antipsychotic treatment and may ultimately require medications over objection. Presently, in my opinion, the patient is felt to lack the capacity to make informed treatment decisions due to psychosis and associated delusional/illogical thought process and content. In my opinion medications over objection would be a reasonable and appropriate treatment intervention at this time. - will offer ativan 0.5mg po qhs tonight for sleep/agitation 08/22 -Patient remains delusional, paranoid, and easily agitated. He is refusing all medications. -File for 303 hearing to be held tomorrow. Agree with medications over objection, as he lacks capacity given complete lack of insight into the presence of mental illness, irritability/agitation and inability to engage in the risks and benefits of treatment, ongoing delusions which are directing his behavior, and inability to provide for his own basic needs/safety without the care and assistance of others. Will order IM olanzapine for refusal of p.o. once he is on a 303 involuntary commitment per policy. -Continue MNPR. -Patient reports his mother lives locally, but is refusing to sign a release or allow staff to contact her. Continue to explore sources of collateral information/past treatment information. 08/23 -Previous records indicate history of paranoid Schizophrenia diagnosed years ago. Patient has been chronically noncompliant with treatment, and lacks all insight into his condition. -303 hearing held and granted. As 2 physicians have given an opinion in favor of medications over objection, will start olanzapine 5mg IM for refusal of 5mg bid PO. Although patient states he is allergic to this medication, he is not, as he has tolerated numerous doses during this hospital stay, with a reported effect of sedation, which she has been informed is not uncommon with this medication. He has been advised that if there are other antipsychotics he would be willing to take, we could try them, but has either declined to state what medications he has been on in the past, or at other times has denied ever taking antipsychotics. -He will likely require a 304 involuntary outpatient commitment. We will notify the county and requests that a BCM be assigned. He will also need [facility] assistance for psychiatric care and therapy. -Continue to encourage him to allow involvement of family, which he has consistently declined both here and during previous outpatient treatment at [facility]. 08/24 - Continue scheduled dosing of olanzapine 5mg BID; patient reporting it "helps me function", but unwilling to discuss further titration of the dose - Pt verbalizes willingness to continue medication after discharge; but is refusing to apply for MA, and has specific providers in mind - making referrals difficult at this time - It is likely that patient will require a 304 outpatient commitment in order to ensure outpatient follow-up given the current barriers he is placing in this process - Continue to gather collateral information as available - Continue MNPR, as patient continues to be delusional 08/25 -Continue olanzapine for now, but would be beneficial to transition to a long-acting injectable antipsychotic given his long history of nonadherence and lack of insight. -File for 304 hearing to be held next week. He will be discharged on IOC. -Social work to contact the [facility] to advise them of this plan so that aftercare can be arranged. -Continue private room and excuse patient from groups due to poor behavioral control. 08/26 -The patient remains quite delusional and has a number of fixed delusional beliefs. -His assertion remains that olanzapine is helpful to him and today he was willing to accept an increase in the dose of olanzapine from 5 mg twice a day to 5 mg in the morning and 10 mg at bedtime. -Nonadherence with outpatient treatment is an issue. The patient was able to discuss this today and tells me that sometimes he feels that his outpatient providers are "signaling" to him that they do not think that he is sick and, therefore, that he does not need treatmentso he drops out of treatment. We discussed this, and I told him that it would be very important for him to test his assumptions by asking the providers directly and by listening to the responses, rather than by trying to guess there meanings and intentions. (The patient was not willing to accept this advice and said, "if they are not professional enough to be direct with me than my should I do their job?") -To the best of my knowledge, the patient has not experienced substantial mood alterations for extended periods of time during the course of his psychotic illness, and my sense is that the patient is suffering from schizophrenia. (2) Anxiety: 08/23 -history of anxiety NOS, through which she has previously taken benzodiazepines. Due to the risk of IM Zyprexa with benzodiazepine, will hold lorazepam for now. If his compliance improves and he is taking olanzapine orally, could consider resuming it if needed. 08/26 -In the past, the patient has insisted that the only class of medications that are needed by him are benzodiazepines. I would not recommend restarting benzodiazepines at this time. (3) Hypertension: 08/20 -Denies history of hypertension. Significant BP elevation in the ER improved following Ativan -Twice daily vitals for now -We will temporarily offer Ativan 1 mg p.o. every 4 hours as needed for anxiety 08/21 -As above, patient refusing medications at present but agrees to consider antihypertensive if blood pressure remains elevated this evening at which time we could consider a beta-bernie or PHILLY inhibitor if he is willing 08/22 -Patient remains mildly hypertensive (149/98), and continues to refuse antihypertensive medication. 08/23 -BP has normalized. Inventory Assets Strengths: Medically healthy, able to communicate Needs: Provision of safety, medication management Risk Factors Assessment Male: Yes : Yes Health Problems: No Mental Health Diagnoses: Yes Previous Psychiatric Hospitalization: Yes Protective Factors Assessment : No Responsible for Young Children: No Employed: No Stable Relationships: No Supportive Family: No Good Rapport with Provider: No Interval History Identifying Information KENDAL PAIGE is a 49-year-old M with a history of schizophrenia vs schizoaffective disorder and treatment noncompliance who currently lives alone and was admitted on 08/20/19 02:19 on a 302 involuntary commitment for psychosis. Chief Complaint "I'm here investigating the disappearance of Crystal Robert". Review of Systems Sleep Information Total Hours of Sleep: 4.5 Sleep Comments: half of total sleep on 11-29 and half on 07-28 up to the bathroom multiple times Meal Information Percent Meal Consumed - Breakfast: 100 Percent Meal Consumed - Lunch: 100 Percent Meal Consumed - Dinner: 100 Subjective Subjective Patient was seen & assessed and interval progress reviewed with treatment team. I met individually with the patient in order to assess his current mental status, evaluate his response to treatment, coordinate any necessary changes in his medication regimen with the patient, and address issues, questions and concerns that may arise. The patient begins by telling me that he believes that he is being held in the hospital illegally, and that his commitment is based upon "false testimony" by "a neighbor who made the whole thing up." His assertion is that the neighbor is angry at him because he cut a multimedia cable that he believes she was using illegally. He also believes that number of neighbors are conspiring against him and are harassing him, for example by "trying to fight [him]" and vibrating in "dangerous dogs" onto his property and the hope of causing the patient serious physical harm. This patient is known to me from a previous outpatient contact several years ago. At that time, the patient was floridly psychotic but was completely devoid of insight and not disposed to accept the diagnosis of a psychotic illness, nor was he willing to accept antipsychotic medications. Today, the patient tells me that he remembers our previous contact, and then states, "nobody ever told me what my diagnosis is." When I told him that my understanding was that his diagnosis was schizophrenia, he said "you cannot prove that." For the most part, the patient discussed various believes that are obviously delusional. For example, he tells me that he is conducting a "high level" investigation of the mysterious disappearance of a [employer] [facility] [facility] international student from [facility]. The student's name is or was "Sarah Robert," but she went by the name "Crystal Robert." Her disappearance in 2000 is considered an unsolved mystery. The patient's report is that he work with Ms. Robert back in the late and considered her to be 1 of his friends. His stated belief is that his family (a reference to his parents) had something to do with Crystal Robert's disappearance. He also says that he believes that the staff on the behavioral health unit is somehow in cahoots with his family to deny the circumstances of her disappearance. When the patient was asked how he is going about conducting his investigation, he became somewhat angry and said "that is irrelevant." However, when I pushed the point he simply said "bystander, sophisticated investigation techniques." Physical Exam Psychiatric Orientation: alert and oriented x 3 Apperance: appropriately dressed and appropriately groomed Eye Contact: + fair eye contact Motor Behavior: steady gait and station Speech: normal rate/rhythm/volume of speech Affect: + labile affect "Fine, except I am upset about being held here against my will." Thought Process: + tangential thought process Thought Content: + delusions The patient harbors a number of delusional beliefs. Some of these believes are grandiose, while others are persecutory. He has no insight into the fact that much of what he believes has no basis in reality and, in fact, angers quickly when the beliefs are questioned in any way. Suicidal Thoughts: denies suicidal thoughts Homicidal Thoughts: denies homicidal thoughts When asked specifically if he has thoughts of harming any of his neighbors, given his belief that they have somehow conspired against him, the patient said "no, of course not. I am from [place]. We are used to this sort of thing. 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 However, he accurately remembers the fact that I saw him briefly on an outpatient basis approximately 2 years ago. He recalls my name, correctly, and my role. Estimated Intelligence: average estimated intelligence Insight: + severely impaired insight Judgement: + impaired judgement Vital Signs (Past 24 Hours) Last Vital Signs Temp 36.2 C L 08/26/19 06:31 Pulse 69 08/26/19 06:32 Resp 16 08/26/19 06:31 BP 125/75 08/26/19 06:32 Pulse Ox 98 08/22/19 20:27 Results & Data Current Inpatient Medications Current Inpatient Medications: Current Inpatient Medications Acetaminophen (Tylenol) 650 mg PO Q4H PRN PRN Reason: Headache or Minor Fever Stop: 09/19/19 02:42 Last Admin: 08/22/19 06:55 Dose: 650 mg Documented by: Al Hydrox/Mg Hydrox/Simethicone (Maalox) 30 ml PO Q4H PRN PRN Reason: GI Upset Stop: 09/19/19 02:42 Benztropine Mesylate (Cogentin) 1 mg IM Q6H PRN PRN Reason: behavoral emergency Stop: 09/19/19 13:44 Bismuth Subsalicylate (Kaopectate) 15 ml PO PRN PRN PRN Reason: Loose Stool Stop: 09/19/19 02:42 Haloperidol Lactate (Haldol) 5 mg IM Q6H PRN PRN Reason: behavioral emergency Stop: 09/19/19 13:31 Hydroxyzine HCl (Vistaril) 50 mg PO HSZ PRN PRN Reason: Insomnia Stop: 09/19/19 02:49 Hydroxyzine HCl (Vistaril) 25 mg PO Q4H PRN PRN Reason: Anxiety Stop: 09/19/19 02:42 Magnesium Hydroxide (Milk Of Magnesia) 30 ml PO DAILY PRN PRN Reason: Constipation Stop: 09/19/19 02:42 Olanzapine (Zyprexa) 5 mg PO Q6 PRN PRN Reason: Psychosis Stop: 09/19/19 05:59 Last Admin: 08/20/19 13:17 Dose: 5 mg Documented by: Olanzapine (Zyprexa) 5 mg PO BID KRISH Stop: 09/19/19 20:59 Last Admin: 08/26/19 08:15 Dose: 5 mg Documented by: Olanzapine (Zyprexa) 5 mg IM BID PRN PRN Reason: refusal of PO Stop: 09/22/19 10:30 Last Admin: 08/23/19 11:13 Dose: 5 mg Documented by: Sodium Chloride ([place] Nasal) 1 - 2 sprays NA PRN PRN PRN Reason: Nasal Dryness/Congestion Stop: 09/19/19 02:42 (1) Schizophrenia Schizophrenia type: paranoid schizophrenia Qualified Code(s): F20.0 - Paranoid schizophrenia
[2019-08-26] MEDS: OLANZAPINE ZYDIS 10 MG ORALLY DIS. TAB PO SCH (21:39)
[2019-08-27] MEDS: OLANZAPINE ZYDIS 5 MG ORALLY DIS. TAB PO SCH (07:49)
--- NOTE | 2019-08-27 13:01 | Psychiatric Progress Note ---
Date of Service August 27, 2019 Impression / Recommendations Impression 49-year-old gentleman with a long-standing history of schizophrenia versus schizoaffective disorder, multiple previous inpatient hospitalizations, and noncompliance with outpatient treatment who presented on a 302 warrant with significant delusional preoccupation, delusions of reference and grandiosity paranoia, agitation, and hallucinations, for which he was involuntarily admitted. He has been refusing medication and lacks insight into his illness or the need for treatment. He is on a 303 involuntary commitment with medications over objection. He will remain in a private room due to his psychosis and de lusions of persecution, ongoing agitation and threats. Will have 304 hearing. Medication over objection has been ordered, but the patient, so far, has been cooperative with [facility]. (1) Schizophrenia: 08/20 -Patient admitted on an involuntary commitment to the behavioral health unit. He will be maintained on regular safety checks with twice daily vitals. We will initially try to minimize stimulation until he is able to appropriately interact in the milieu -I attempted to educate him about circumstances, implications of 302, and answer questions however pt poorly able to engage logically due to paranoia -will consider potential need for additional medical w/w as more becomes known - he does not appear to be in withdrawal. UDS negative. -We will offer olanzapine 5 mg p.o. twice daily for psychosis and 5mg q6h prn (DNE 20mg in 24h) -Will utilize Haldol 5 mg IM, 2 mg Ativan, 1 mg Cogentin every 6 hours as needed for behavioral emergency -We will expand database as able 08/21 - Unfortunately patient appears likely to refuse antipsychotic treatment and may ultimately require medications over objection. Presently, in my opinion, th e patient is felt to lack the capacity to make informed treatment decisions due to psychosis and associated delusional/illogical thought process and content. In my opinion medications over objection would be a reasonable and appropriate treatment intervention at this time. - will offer ativan 0.5mg po qhs tonight for sleep/agitation 08/22 -Patient remains delusional, paranoid, and easily agitated. He is refusing all medications. -File for 303 hearing to be held tomorrow. Agree with medications over objection, as he lacks capacity given complete lack of insight into the presence of mental illness, irritability/agitation and inability to engage in the risks and benefits of treatment, ongoing delusions which are directing his behavior, and inability to provide for his own basic needs/safety without the care and assistance of others. Will order IM olanzapine for refusal of p.o. once he is on a 303 involuntary commitment per policy. -Continue MNPR. -Patient reports his mother lives locally, but is refusing to sign a release or allow staff to contact her. Continue to explore sources of collateral information/past treatment information. 08/23 -Previous records indicate history of paranoid Schizophrenia diagnosed years ago. Patient has been chronically noncompliant with treatment, and lacks all insight into his condition. -303 hearing held and granted. As 2 physicians have given an opinion in favor of medications over objection, will start olanzapine 5mg IM for refusal of 5mg bid PO. Although patient states he is allergic to this medication, he is not, as he has tolerated numerous doses during this hospital stay, with a reported effect of sedation, which she has been informed is not uncommon with this medication. He has been advised that if there are other antipsychotics he would be willing to take, we could try them, but has either declined to state what medications he has been on in the past, or at other times has denied ever taking antipsychotics. -He will likely require a 304 involuntary outpatient commitment. We will notify the [facility] and requests that a M be assigned. He will also need [facility] assistance for psychiatric care and therapy. -Continue to encourage him to allow involvement of family, which he has consistently declined both here and during previous outpatient treatment at [facility]. 08/24 - Continue scheduled dosing of olanzapine 5mg BID; patient reporting it "helps me function", but unwilling to discuss further titration of the dose - Pt verbalizes willingness to continue medication after discharge; but is refusing to apply for MA, and has specific providers in mind - making referrals difficult at this time - It is likely that patient will require a 304 outpatient commitment in order to ensure outpatient follow-up given the current barriers he is placing in this process - Continue to gather collateral information as available - Continue MNPR, as patient continues to be delusional 08/25 -Continue olanzapine for now, but would be beneficial to transition to a long-acting injectable antipsychotic given his long history of nonadherence and lack of insight. -File for 304 hearing to be held next week. He will be discharged on [facility]. -Social work to contact the county to advise them of this plan so that aftercare can be arranged. -Continue private room and excuse patient from groups due to poor behavioral control. 08/26 -The patient remains quite delusional and has a number of fixed delusional beliefs. -His assertion remains that olanzapine is helpful to him and today he was willing to accept an increase in the dose of olanzapine from 5 mg twice a day to 5 mg in the morning and 10 mg at bedtime. -Nonadherence with outpatient treatment is an issue. The patient was able to discuss this today and tells me that sometimes he feels that his outpatient providers are "signaling" to him that they do not think that he is sick and, therefore, that he does not need treatmentso he drops out of treatment. We discussed this, and I told him that it would be very important for him to test his assumptions by asking the providers directly and by listening to the responses, rather than by trying to guess there meanings and intentions. (The patient was not willing to accept this advice and said, "if they are not professional enough to be direct with me than my should I do their job?") -To the best of my knowledge, the patient has not experienced substantial mood alterations for extended periods of time during the course of his psychotic illness, and my sense is that the patient is suffering from schizophrenia. (2) Anxiety: 08/23 -history of anxiety NOS, through which she has previously taken benzodiazepines. Due to the risk of IM Zyprexa with benzodiazepine, will hold lorazepam for now. If his compliance improves and he is taking olanzapine orally, could consider resuming it if needed. 08/26 -In the past, the patient has insisted that the only class of medications that are needed by him are benzodiazepines. I would not recommend restarting benzodiazepines at this time. (3) Hypertension: 08/20 -Denies history of hypertension. Significant BP elevation in the ER improved following Ativan -Twice daily vitals for now -We will temporarily offer Ativan 1 mg p.o. every 4 hours as needed for anxiety 08/21 -As above, patient refusing medications at present but agrees to consider antihypertensive if blood pressure remains elevated this evening at which time we could consider a beta-bernie or PHILLY inhibitor if he is willing 08/22 -Patient remains mildly hypertensive (149/98), and continues to refuse antihypertensive medication. 08/23 -BP has normalized. Inventory Assets Strengths: Medically healthy, able to communicate Needs: Provision of safety, medication management Risk Factors Assessment Male: Yes : Yes Health Problems: No Mental Health Diagnoses: Yes Previous Psychiatric Hospitalization: Yes Protective Factors Assessment : No Responsible for Young Children: No Employed: No Stable Relationships: No Supportive Family: No Good Rapport with Provider: No Interval History Identifying Information KENDAL PAIGE is a 49-year-old M with a history of schizophrenia vs schizoaffective disorder and treatment noncompliance who currently lives alone and was admitted on 08/20/19 02:19 on a 302 involuntary commitment for psychosis. Chief Complaint "CAN HELP made that stuff up, I'm always fine". Review of Systems Sleep Information Total Hours of Sleep: 6.75 Sleep Comments: half of total sleep on 11-29 and half on 07-28 up to the bathroom multiple times Meal Information Percent Meal Consumed - Breakfast: 100 Percent Meal Consumed - Lunch: 100 Percent Meal Consumed - Dinner: 100 Subjective Subjective Patient was seen & assessed and interval progress reviewed with nursing and social work. no scute issues overnight, remains on MNPR for paranoia. Tells me that since we have deemed his is a risk to himself or others he would scream and "really let you know" he can't tolerate a roommate. Has been taking PO meds and requested Zyprexa increase yesterday in meeting with Dr. Rebolledo. Napped a bit this am after am dose but otherwise tolerating well. He is agreeable to fasting labs in am after review of monitoring given risks of metabolic abnormalities and TD. Physical Exam Psychiatric Orientation: alert Apperance: appropriately dressed and appropriately groomed Motor Behavior: steady gait and station and no abnormal motor movements Speech: + loud speech (at times) Affect: + irritable affect Mood: + irritable mood Thought Process: + concrete thought process Thought Content: + preoccupation and + delusions Suicidal Thoughts: denies suicidal thoughts Homicidal Thoughts: denies homicidal thoughts Hallucinations: no auditory hallucinations and no visual hallucinations Cognition: attention grossly intact and language grossly intact; + recent memory not intact Estimated Intelligence: consistent with education level Insight: + impaired insight Judgement: + impaired judgement Vital Signs (Past 24 Hours) Last Vital Signs Temp 36.6 C 08/27/19 06:49 Pulse 69 08/27/19 06:50 Resp 20 08/27/19 06:49 BP 127/83 08/27/19 06:50 Pulse Ox 98 08/22/19 20:27 Results & Data Current Inpatient Medications Current Inpatient Medications: Current Inpatient Medications Acetaminophen (Tylenol) 650 mg PO Q4H PRN PRN Reason: Headache or Minor Fever Stop: 09/19/19 02:42 Last Admin: 08/22/19 06:55 Dose: 650 mg Documented by: Al Hydrox/Mg Hydrox/Simethicone (Maalox) 30 ml PO Q4H PRN PRN Reason: GI Upset Stop: 09/19/19 02:42 Benztropine Mesylate (Cogentin) 1 mg IM Q6H PRN PRN Reason: behavoral emergency Stop: 09/19/19 13:44 Bismuth Subsalicylate (Kaopectate) 15 ml PO PRN PRN PRN Reason: Loose Stool Stop: 09/19/19 02:42 Haloperidol Lactate (Haldol) 5 mg IM Q6H PRN PRN Reason: behavioral emergency Stop: 09/19/19 13:31 Hydroxyzine HCl (Vistaril) 50 mg PO HSZ PRN PRN Reason: Insomnia Stop: 09/19/19 02:49 Hydroxyzine HCl (Vistaril) 25 mg PO Q4H PRN PRN Reason: Anxiety Stop: 09/19/19 02:42 Magnesium Hydroxide (Milk Of Magnesia) 30 ml PO DAILY PRN PRN Reason: Constipation Stop: 09/19/19 02:42 Olanzapine (Zyprexa) 5 mg PO Q6 PRN PRN Reason: Psychosis Stop: 09/19/19 05:59 Last Admin: 08/20/19 13:17 Dose: 5 mg Documented by: Olanzapine (Zyprexa) 5 mg IM BID PRN PRN Reason: refusal of PO Stop: 09/22/19 10:30 Last Admin: 08/23/19 11:13 Dose: 5 mg Documented by: Olanzapine (Zyprexa Zydis Od) 10 mg PO HS KRISH Stop: 09/25/19 21:59 Last Admin: 08/26/19 21:39 Dose: 10 mg Documented by: Olanzapine (Zyprexa Zydis Od) 5 mg PO QAM KRISH Stop: 09/26/19 08:59 Last Admin: 08/27/19 07:49 Dose: 5 mg Documented by: Sodium Chloride ([place] Nasal) 1 - 2 sprays NA PRN PRN PRN Reason: Nasal Dryness/Congestion Stop: 09/19/19 02:42 (1) Schizophrenia Schizophrenia type: paranoid schizophrenia Qualified Code(s): F20.0 - Parano id schizophrenia
[2019-08-27] MEDS: OLANZAPINE ZYDIS 10 MG ORALLY DIS. TAB PO SCH (20:57)
[2019-08-28 06:53] LABS: Glucose Fasting 101 mg/dl (70-99)
[2019-08-28 07:00] LABS: Chol HDL Ratio 3; Cholesterol 191 mg/dl (0-200); HDL Cholesterol 58 mg/dl; LDL Cholesterol Calculated 110 mg/dl; Triglycerides 115 mg/dl (0-150); VLDL Cholesterol 23 mg/dl
[2019-08-28] MEDS: OLANZAPINE ZYDIS 5 MG ORALLY DIS. TAB PO SCH (08:40)
--- NOTE | 2019-08-28 13:17 | Psychiatric Progress Note ---
Date of Service August 28, 2019 Impression / Recommendations Impression 49-year-old gentleman with a long-standing history of schizophrenia versus schizoaffective disorder, multiple previous inpatient hospitalizations, and noncompliance with outpatient treatment who presented on a 302 warrant with significant delusional preoccupation, delusions of reference and grandiosity paranoia, agitation, and hallucinations, for which he was involuntarily admitted. He has been refusing medication and lacks insight into his illness or the need for treatment. He is on a 303 involuntary commitment with medications over objection. He will remain in a private room due to his psychosis and de lusions of persecution, ongoing agitation and threats. Will have 304 hearing. Medication over objection has been ordered, but the patient, so far, has been cooperative with [facility]. (1) Schizophrenia: 08/20 -Patient admitted on an involuntary commitment to the behavioral health unit. He will be maintained on regular safety checks with twice daily vitals. We will initially try to minimize stimulation until he is able to appropriately interact in the milieu -I attempted to educate him about circumstances, implications of 302, and answer questions however pt poorly able to engage logically due to paranoia -will consider potential need for additional medical w/w as more becomes known - he does not appear to be in withdrawal. UDS negative. -We will offer olanzapine 5 mg p.o. twice daily for psychosis and 5mg q6h prn (DNE 20mg in 24h) -Will utilize Haldol 5 mg IM, 2 mg Ativan, 1 mg Cogentin every 6 hours as needed for behavioral emergency -We will expand database as able 08/21 - Unfortunately patient appears likely to refuse antipsychotic treatment and may ultimately require medications over objection. Presently, in my opinion, th e patient is felt to lack the capacity to make informed treatment decisions due to psychosis and associated delusional/illogical thought process and content. In my opinion medications over objection would be a reasonable and appropriate treatment intervention at this time. - will offer ativan 0.5mg po qhs tonight for sleep/agitation 08/22 -Patient remains delusional, paranoid, and easily agitated. He is refusing all medications. -File for 303 hearing to be held tomorrow. Agree with medications over objection, as he lacks capacity given complete lack of insight into the presence of mental illness, irritability/agitation and inability to engage in the risks and benefits of treatment, ongoing delusions which are directing his behavior, and inability to provide for his own basic needs/safety without the care and assistance of others. Will order IM olanzapine for refusal of p.o. once he is on a 303 involuntary commitment per policy. -Continue MNPR. -Patient reports his mother lives locally, but is refusing to sign a release or allow staff to contact her. Continue to explore sources of collateral information/past treatment information. 08/23 -Previous records indicate history of paranoid Schizophrenia diagnosed years ago. Patient has been chronically noncompliant with treatment, and lacks all insight into his condition. -303 hearing held and granted. As 2 physicians have given an opinion in favor of medications over objection, will start olanzapine 5mg IM for refusal of 5mg bid PO. Although patient states he is allergic to this medication, he is not, as he has tolerated numerous doses during this hospital stay, with a reported effect of sedation, which she has been informed is not uncommon with this medication. He has been advised that if there are other antipsychotics he would be willing to take, we could try them, but has either declined to state what medications he has been on in the past, or at other times has denied ever taking antipsychotics. -He will likely require a 304 involuntary outpatient commitment. We will notify the [facility] and requests that a M be assigned. He will also need [facility] assistance for psychiatric care and therapy. -Continue to encourage him to allow involvement of family, which he has consistently declined both here and during previous outpatient treatment at [facility]. 08/24 - Continue scheduled dosing of olanzapine 5mg BID; patient reporting it "helps me function", but unwilling to discuss further titration of the dose - Pt verbalizes willingness to continue medication after discharge; but is refusing to apply for MA, and has specific providers in mind - making referrals difficult at this time - It is likely that patient will require a 304 outpatient commitment in order to ensure outpatient follow-up given the current barriers he is placing in this process - Continue to gather collateral information as available - Continue MNPR, as patient continues to be delusional 08/25 -Continue olanzapine for now, but would be beneficial to transition to a long-acting injectable antipsychotic given his long history of nonadherence and lack of insight. -File for 304 hearing to be held next week. He will be discharged on [facility]. -Social work to contact the county to advise them of this plan so that aftercare can be arranged. -Continue private room and excuse patient from groups due to poor behavioral control. 08/26 -The patient remains quite delusional and has a number of fixed delusional beliefs. -His assertion remains that olanzapine is helpful to him and today he was willing to accept an increase in the dose of olanzapine from 5 mg twice a day to 5 mg in the morning and 10 mg at bedtime. -Nonadherence with outpatient treatment is an issue. The patient was able to discuss this today and tells me that sometimes he feels that his outpatient providers are "signaling" to him that they do not think that he is sick and, therefore, that he does not need treatmentso he drops out of treatment. We discussed this, and I told him that it would be very important for him to test his assumptions by asking the providers directly and by listening to the responses, rather than by trying to guess there meanings and intentions. (The patient was not willing to accept this advice and said, "if they are not professional enough to be direct with me than my should I do their job?") -To the best of my knowledge, the patient has not experienced substantial mood alterations for extended periods of time during the course of his psychotic illness, and my sense is that the patient is suffering from schizophrenia. 08/28 continue same pending [address] to determine if can return to [facility] as a [facility] patient. (2) Anxiety: 08/23 -history of anxiety NOS, through which she has previously taken benzodiazepines. Due to the risk of IM Zyprexa with benzodiazepine, will hold lorazepam for now. If his compliance improves and he is taking olanzapine orally, could consider resuming it if needed. 08/26 -In the past, the patient has insisted that the only class of medications that are needed by him are benzodiazepines. I would not recommend restarting benzodiazepines at this time. (3) Hypertension: 08/20 -Denies history of hypertension. Significant BP elevation in the ER improved following Ativan -Twice daily vitals for now -We will temporarily offer Ativan 1 mg p.o. every 4 hours as needed for anxiety 08/21 -As above, patient refusing medications at present but agrees to consider antihypertensive if blood pressure remains elevated this evening at which time we could consider a beta-bernie or PHILLY inhibitor if he is willing 08/22 -Patient remains mildly hypertensive (149/98), and continues to refuse antihypertensive medication. 08/23 -BP has normalized. Inventory Assets Strengths: Medically healthy, able to communicate Needs: Provision of safety, medication management Risk Factors Assessment Male: Yes : Yes Health Problems: No Mental Health Diagnoses: Yes Previous Psychiatric Hospitalization: Yes Protective Factors Assessment : No Responsible for Young Children: No Employed: No Stable Relationships: No Supportive Family: No Good Rapport with Provider: No Interval History Identifying Information KENDAL PAIGE is a 49-year-old M with a history of schizophrenia vs schizoaffective disorder and treatment noncompliance who currently lives alone and was admitted on 08/20/19 02:19 on a 302 involuntary commitment for psychosis. Chief Complaint "i'm going to appeal this is bull". Review of Systems Sleep Information Total Hours of Sleep: 5 Sleep Comments: half of total sleep on 11-29 and half on 07-28 up to the bathroom multiple times Meal Information Percent Meal Consumed - Breakfast: 100 Percent Meal Consumed - Lunch: 100 Percent Meal Consumed - Dinner: 100 Subjective Subjective Patient was seen & assessed and interval progress reviewed with nursing and social work. Remains irritable about his hospitalization. Refuses to allow assistance to apply for insurance, "I'm not poor" but clearly paranoid re: [facility] having his information. He believes his family is holding back millions of dollars. 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 He is irritable and bossy with patients but no physical acting out and did comply with lab draw and meds this am. Made an odd hand gesture to dismiss me this am. Physical Exam Psychiatric Orientation: alert and oriented x 3 Apperance: appropriately dressed and appropriately groomed Eye Contact: + fair eye contact Motor Behavior: no abnormal motor movements Speech: normal rate/rhythm/volume of speech Affect: + irritable affect Mood: + irritable mood Thought Process: + perseveration and + concrete thought process Thought Content: + delusions Suicidal Thoughts: denies suicidal thoughts Homicidal Thoughts: denies homicidal thoughts Hallucinations: no auditory hallucinations and no visual hallucinations Estimated Intelligence: average estimated intelligence Insight: + poor insight Judgement: + poor judgement Vital Signs (Past 24 Hours) Last Vital Signs Temp 36.6 C 08/28/19 06:44 Pulse 79 08/28/19 06:45 Resp 18 12/08/19 06:44 BP 109/68 08/28/19 06:45 Pulse Ox 98 08/22/19 20:27 Results & Data Laboratory Results Laboratory Results - last 24 hr 08/28/19 05:53 Fasting Glucose 101 H Triglycerides 115 Cholesterol 191 LDL Cholesterol, Calc 110 VLDL Cholesterol, Calc 23 HDL Cholesterol 58 Cholesterol/HDL Ratio 3 Current Inpatient Medications Current Inpatient Medications: Current Inpatient Medications Acetaminophen (Tylenol) 650 mg PO Q4H PRN PRN Reason: Headache or Minor Fever Stop: 09/19/19 02:42 Last Admin: 08/22/19 06:55 Dose: 650 mg Documented by: Al Hydrox/Mg Hydrox/Simethicone (Maalox) 30 ml PO Q4H PRN PRN Reason: GI Upset Stop: 09/19/19 02:42 Benztropine Mesylate (Cogentin) 1 mg IM Q6H PRN PRN Reason: behavoral emergency Stop: 09/19/19 13:44 Bismuth Subsalicylate (Kaopectate) 15 ml PO PRN PRN PRN Reason: Loose Stool Stop: 09/19/19 02:42 Haloperidol Lactate (Haldol) 5 mg IM Q6H PRN PRN Reason: behavioral emergency Stop: 09/19/19 13:31 Hydroxyzine HCl (Vistaril) 50 mg PO HSZ PRN PRN Reason: Insomnia Stop: 09/19/19 02:49 Hydroxyzine HCl (Vistaril) 25 mg PO Q4H PRN PRN Reason: Anxiety Stop: 09/19/19 02:42 Magnesium Hydroxide (Milk Of Magnesia) 30 ml PO DAILY PRN PRN Reason: Constipation Stop: 09/19/19 02:42 Olanzapine (Zyprexa) 5 mg PO Q6 PRN PRN Reason: Psychosis Stop: 09/19/19 05:59 Last Admin: 08/20/19 13:17 Dose: 5 mg Documented by: Olanzapine (Zyprexa) 5 mg IM BID PRN PRN Reason: refusal of PO Stop: 09/22/19 10:30 Last Admin: 08/23/19 11:13 Dose: 5 mg Documented by: Olanzapine (Zyprexa Zydis Od) 10 mg PO HS KRISH Stop: 09/25/19 21:59 Last Admin: 08/27/19 20:57 Dose: 10 mg Documented by: Olanzapine (Zyprexa Zydis Od) 5 mg PO QAM KRISH Stop: 09/26/19 08:59 Last Admin: 08/28/19 08:40 Dose: 5 mg Documented by: Sodium Chloride ([place] Nasal) 1 - 2 sprays NA PRN PRN PRN Reason: Nasal Dryness/Congestion Stop: 09/19/19 02:42 (1) Schizophrenia Schizophrenia type: paranoid schizophrenia Qualified Code(s): F20.0 - Paranoid schizophrenia
[2019-08-28] MEDS: OLANZAPINE ZYDIS 10 MG ORALLY DIS. TAB PO SCH (21:01)
[2019-08-29] MEDS: OLANZAPINE ZYDIS 5 MG ORALLY DIS. TAB PO SCH (08:31)
[2019-08-29] MEDS ORDERED: OLANZapine 5 MG TABLET PO STA (11:17)
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
[2019-08-29] MEDS: OLANZAPINE ZYDIS 10 MG ORALLY DIS. TAB PO SCH (21:15)
[2019-08-30] MEDS: OLANZAPINE ZYDIS 10 MG ORALLY DIS. TAB PO SCH ×2 (07:26→20:48)
[2019-08-30] MEDS: ACETAMINOPHEN 325 MG TAB PO PRN (08:29)
--- NOTE | 2019-08-30 10:43 | Psychiatric Progress Note ---
Date of Service August 30, 2019 Impression / Recommendations Impression 49-year-old gentleman with a long-standing history of schizophrenia versus schizoaffective disorder, multiple previous inpatient hospitalizations, and noncompliance with outpatient treatment who presented on a 302 warrant with significant delusional preoccupation, delusions of reference and grandiosity paranoia, agitation, and hallucinations, for which he was involuntarily admitted. He has been more cooperative with medication, but continues to lacks insight into his illness or the need for treatment. He is on a 303 involuntary commitment with medications over objection. He will remain in a private room due to his psychosis and delusions of persecution, ongoing agitation and threats. 304 hearing scheduled for 08/31. Medication over objection has been ordered, but the patient, so far, has been cooperative with Zyprexa - titrating as tolerated. He remains unwilling to proceed with MA application in order to be followed by the [facility] on an outpatient commitment - will continue to discuss appropriate and safe discharge planning. (1) Schizophrenia: 08/20 -Patient admitted on an involuntary commitment to the behavioral health unit. He will be maintained on regular safety checks with twice daily vitals. We will initially try to minimize stimulation until he is able to appropriately interact in the milieu -I attempted to educate him about circumstances, implications of 302, and answer questions however pt poorly able to engage logically due to paranoia -will consider potential need for additional medical w/w as more becomes known - he does not appear to be in withdrawal. UDS negative. -We will offer olanzapine 5 mg p.o. twice daily for psychosis and 5mg q6h prn (DNE 20mg in 24h) -Will utilize Haldol 5 mg IM, 2 mg Ativan, 1 mg Cogentin every 6 hours as needed for behavioral emergency -We will expand database as able 08/21 - Unfortunately patient appears likely to refuse antipsychotic treatment and may ultimately require medications over objection. Presently, in my opinion, the patient is felt to lack the capacity to make informed treatment decisions due to psychosis and associated delusional/illogical thought process and con tent. In my opinion medications over objection would be a reasonable and appropriate treatment intervention at this time. - will offer ativan 0.5mg po qhs tonight for sleep/agitation 08/22 -Patient remains delusional, paranoid, and easily agitated. He is refusing all medications. -File for 303 hearing to be held tomorrow. Agree with medications over objection, as he lacks capacity given complete lack of insight into the presence of mental illness, irritability/agitation and inability to engage in the risks and benefits of treatment, ongoing delusions which are directing his behavior, and inability to provide for his own basic needs/safety without the care and assistance of others. Will order IM olanzapine for refusal of p.o. once he is on a 303 involuntary commitment per policy. -Continue MNPR. -Patient reports his mother lives locally, but is refusing to sign a release or allow staff to contact her. Continue to explore sources of collateral information/past treatment information. 08/23 -Previous records indicate history of paranoid Schizophrenia diagnosed years ago. Patient has been chronically noncompliant with treatment, and lacks all insight into his condition. -303 hearing held and granted. As 2 physicians have given an opinion in favor of medications over objection, will start olanzapine 5mg IM for refusal of 5mg bid PO. Although patient states he is allergic to this medication, he is not, as he has tolerated numerous doses during this hospital stay, with a reported effect of sedation, which she has been informed is not uncommon with this medication. He has been advised that if there are other antipsychotics he would be willing to take, we could try them, but has either declined to state what medications he has been on in the past, or at other times has denied ever taking antipsychotics. -He will likely require a 304 involuntary outpatient commitment. We will notify the [facility] and requests that a [facility] be assigned. He will also need [facility] assistance for psychiatric care and therapy. -Continue to encourage him to allow involvement of family, which he has consistently declined both here and during previous outpatient treatment at [facility][note 3]. 08/24 - Continue scheduled dosing of olanzapine 5mg BID; patient reporting it "helps me function", but unwilling to discuss further titration of the dose - Pt verbalizes willingness to continue medication after discharge; but is refusing to apply for MA, and has specific providers in mind - making referrals difficult at this time - It is likely that patient will require a 304 outpatient commitment in order to ensure outpatient follow-up given the current barriers he is placing in this process - Continue to gather collateral information as available - Continue MNPR, as patient continues to be delusional 08/25 -Continue olanzapine for now, but would be beneficial to transition to a long-acting injectable antipsychotic given his long history of nonadherence and lack of insight. -File for 304 hearing to be held next week. He will be discharged on [facility]. -Social work to contact the county to advise them of this plan so that aftercare can be arranged. -Continue private room and excuse patient from groups due to poor behavioral control. 08/26 -The patient remains quite delusional and has a number of fixed delusional beliefs. -His assertion remains that olanzapine is helpful to him and today he was willing to accept an increase in the dose of olanzapine from 5 mg twice a day to 5 mg in the morning and 10 mg at bedtime. -Nonadherence with outpatient treatment is an issue. The patient was able to discuss this today and tells me that sometimes he feels that his outpatient providers are "signaling" to him that they do not think that he is sick and, therefore, that he does not need treatmentso he drops out of treatment. We discussed this, and I told him that it would be very important for him to test his assumptions by asking the providers directly and by listening to the responses, rather than by trying to guess there meanings and intentions. (The patient was not willing to accept this advice and said, "if they are not professional enough to be direct with me than my should I do their job?") -To the best of my knowledge, the patient has not experienced substantial mood alterations for extended periods of time during the course of his psychotic illness, and my sense is that the patient is suffering from schizophrenia. 08/28 continue same pending 304 hearing, to determine if can return to [facility] as a [facility] patient. 08/29 - Pt requesting titration of olanzapine to 10mg BID, which seems appropriate - will provide a 5mg one-time dose, then adjust schedule to 10mg BID starting tomorrow morning - 304 hearing on 08/31 - to meet with representatives from the [facility] regarding aftercare options, as patient will likely be discharged on an outpatient 304 - Pt continues to refuse to complete paperwork for MA application 08/30 - Continue olanzapine 10mg BID - patient reporting morning sedation but was unwilling to adjust dosing to allow for higher bedtime dose - 304 hearing scheduled for tomorrow morning - Continues to refuse MA application - aftercare services will need to be arranged, as patient's behavior prior to admission suggests he remains at high risk of potential harm if he is not adequately engaged in outpatient psychiatric services and is unable to continue medications (2) Anxiety: 08/23 -history of anxiety NOS, through which she has previously taken benzodiazepines. Due to the risk of IM Zyprexa with benzodiazepine, will hold lorazepam for now. If his compliance improves and he is taking olanzapine orally, could consider resuming it if needed. 08/26 -In the past, the patient has insisted that the only class of medications that are needed by him are benzodiazepines. I would not recommend restarting benzodiazepines at this time. 08/29 - Pt reporting increased anxiety related to perceived injustice of admission - Discussed availability of hydroxyzine for anxiety; reviewed that benzodiazepines are not recommended, especially as he himself reports a 4-year history of "addiction" several years ago 08/30 - Pt reports benefit from prn dosing of hydroxyzine (3) Hypertension: 08/20 -Denies history of hypertension. Significant BP elevation in the ER improved following Ativan -Twice daily vitals for now -We will temporarily offer Ativan 1 mg p.o. every 4 hours as needed for anxiety 08/21 -As above, patient refusing medications at present but agrees to consider antihypertensive if blood pressure remains elevated this evening at which time we could consider a beta-bernie or PHILLY inhibitor if he is willing 08/22 -Patient remains mildly hypertensive (149/98), and continues to refuse antihypertensive medication. 08/23 -BP has normalized. Inventory Assets Strengths: Medically healthy, able to communicate Needs: Provision of safety, medication management Risk Factors Assessment Male: Yes : Yes Health Problems: No Mental Health Diagnoses: Yes Previous Psychiatric Hospitalization: Yes Protective Factors Assessment : No Responsible for Young Children: No Employed: No Stable Relationships: No Supportive Family: No Good Rapport with Provider: No Interval History Identifying Information KENDAL PAIGE is a 49-year-old M with a history of schizophrenia vs schizoaffective disorder and treatment noncompliance who currently lives alone and was admitted on 08/20/19 02:19 on a 302 involuntary commitment for psychosis. Chief Complaint "I'm fine." Review of Systems Notes Constitutional: denied Cardiovascular: denied Respiratory: denied Gastrointestinal: denied Neurological: denied Psychiatric: denies symptoms other than stated above Total of at least 10 systems reviewed, pertinent positives as above and in HPI. Sleep Information Total Hours of Sleep: 5.5 Sleep Comments: pt on q-15 minute checks Meal Information Percent Meal Consumed - Breakfast: 100 Percent Meal Consumed - Lunch: 100 Percent Meal Consumed - Dinner: 100 Subjective Subjective Patient was seen & assessed and interval progress reviewed with nursing and social work. Staff reports patient continues to refuse to complete a medical assistance application, in order to qualify for [facility] assistance for psychiatric aftercare services. He remains focused on discharge, and feeling he does not need to be here. Patient's 304 hearing is scheduled for tomorrow morning at 930. Patient was seen today to assess progress since admission. He reports that he is feeling "fine." Patient states that he has been sleeping and eating well. We reviewed availability of hydroxyzine after our conversation yesterday, patient states it had been helpful for anxiety yesterday afternoon and that he did not require a bedtime dose to assist with sleep. We reviewed thoughts regarding titration of a.m. dose of olanzapine. Patient states that he is feeling more tired today, stating "it is going well other than me falling asleep each time I sit down." This provider reviewed with the patient that if the higher morning dose is making him sedated, the dosing could be weighted toward bedtime to prevent daytime sedation. Patient informs this provider "it is fine, I want to keep it the way that it is. I am tired of all of this micromanaging. 10 in the morning, 10 at night. That is it." This provider stated she was willing to keep his dosing as is, but reminded him we could discuss further if he is interested. Patient denies other needs or concerns at this time. Physical Exam Psychiatric Orientation: alert, oriented x 3 and + guarded (Only superficially cooperative) Apperance: appropriately dressed, appropriately groomed and appeared stated age Eye Contact: + fair eye contact (Brief moments of direct eye contact) Motor Behavior: steady gait and station and no abnormal motor movements Speech: normal rate/rhythm/volume of speech (Irritable tone, brief responses to questions) Affect: + blunted affect (Appearing fatigued this morning) Mood: no depressed mood ("I am fine") Thought Process: goal directed thought process and + perseveration Thought Content: + preoccupation (With discharge and belief he does not need to be here), + delusions and + persecution Suicidal Thoughts: denies suicidal thoughts Homicidal Thoughts: denies homicidal thoughts Hallucinations: no auditory hallucinations and no visual hallucinations Insight: + impaired insight Judgement: + impaired judgement Vital Signs (Past 24 Hours) Last Vital Signs Temp 36.6 C 08/30/19 06:48 Pulse 80 08/30/19 06:51 Resp 18 08/30/19 06:48 BP 103/67 08/30/19 06:51 Pulse Ox 98 08/22/19 20:27 Results & Data Current Inpatient Medications Current Inpatient Medications: Current Inpatient Medications Acetaminophen (Tylenol) 650 mg PO Q4H PRN PRN Reason: Headache or Minor Fever Stop: 09/19/19 02:42 Last Admin: 08/30/19 08:29 Dose: 650 mg Documented by: Al Hydrox/Mg Hydrox/Simethicone (Maalox) 30 ml PO Q4H PRN PRN Reason: GI Upset Stop: 09/19/19 02:42 Benztropine Mesylate (Cogentin) 1 mg IM Q6H PRN PRN Reason: behavoral emergency Stop: 09/19/19 13:44 Bismuth Subsalicylate (Kaopectate) 15 ml PO PRN PRN PRN Reason: Loose Stool Stop: 09/19/19 02:42 Haloperidol Lactate (Haldol) 5 mg IM Q6H PRN PRN Reason: behavioral emergency Stop: 09/19/19 13:31 Hydroxyzine HCl (Vistaril) 50 mg PO HSZ PRN PRN Reason: Insomnia Stop: 09/19/19 02:49 Hydroxyzine HCl (Vistaril) 25 mg PO Q4H PRN PRN Reason: Anxiety Stop: 09/19/19 02:42 Last Admin: 08/29/19 11:26 Dose: 25 mg Documented by: Magnesium Hydroxide (Milk Of Magnesia) 30 ml PO DAILY PRN PRN Reason: Constipation Stop: 09/19/19 02:42 Olanzapine (Zyprexa) 5 mg PO Q6 PRN PRN Reason: Psychosis Stop: 09/19/19 05:59 Last Admin: 08/20/19 13:17 Dose: 5 mg Documented by: Olanzapine (Zyprexa) 5 mg IM BID PRN PRN Reason: refusal of PO Stop: 09/22/19 10:30 Last Admin: 08/23/19 11:13 Dose: 5 mg Documented by: Olanzapine (Zyprexa Zydis Od) 10 mg PO BID KRISH Stop: 09/28/19 20:59 Last Admin: 08/30/19 07:26 Dose: 10 mg Documented by: Sodium Chloride ([place] Nasal) 1 - 2 sprays NA PRN PRN PRN Reason: Nasal Dryness/Congestion Stop: 09/19/19 02:42 (1) Schizophrenia Schizophrenia type: paranoid schizophrenia Qualified Code(s): F20.0 - Paranoid schizophrenia
--- NOTE | 2019-08-31 08:13 | Psychiatric Progress Note ---
Date of Service August 31, 2019 Impression / Recommendations Impression 49-year-old gentleman with a long-standing history of schizophrenia versus schizoaffective disorder, multiple previous inpatient hospitalizations, and noncompliance with outpatient treatment who presented on a 302 warrant with significant delusional preoccupation, delusions of reference and grandiosity paranoia, agitation, and hallucinations, for which he was involuntarily admitted. He has been more cooperative with medication, but continues to lacks insight into his illness or the need for treatment. He is on a 303 involuntary commitment with medications over objection. He will remain in a private room due to his psychosis and delusions of persecution, ongoing agitation and threats. 304 hearing scheduled for 08/31. Medication over objection has been ordered, but the patient, so far, has been cooperative with Zyprexa - titrating as tolerated. He remains unwilling to proceed with MA application in order to be followed by the [facility] on an outpatient commitment - will continue to discuss appropriate and safe discharge planning. (1) Schizophrenia: 08/20 -Patient admitted on an involuntary commitment to the behavioral health unit. He will be maintained on regular safety checks with twice daily vitals. We will initially try to minimize stimulation until he is able to appropriately interact in the milieu -I attempted to educate him about circumstances, implications of 302, and answer questions however pt poorly able to engage logically due to paranoia -will consider potential need for additional medical w/w as more becomes known - he does not appear to be in withdrawal. UDS negative. -We will offer olanzapine 5 mg p.o. twice daily for psychosis and 5mg q6h prn (DNE 20mg in 24h) -Will utilize Haldol 5 mg IM, 2 mg Ativan, 1 mg Cogentin every 6 hours as needed for behavioral emergency -We will expand database as able 08/21 - Unfortunately patient appears likely to refuse antipsychotic treatment and may ultimately require medications over objection. Presently, in my opinion, the patient is felt to lack the capacity to make informed treatment decisions due to psychosis and associated delusional/illogical thought process and con tent. In my opinion medications over objection would be a reasonable and appropriate treatment intervention at this time. - will offer ativan 0.5mg po qhs tonight for sleep/agitation 08/22 -Patient remains delusional, paranoid, and easily agitated. He is refusing all medications. -File for 303 hearing to be held tomorrow. Agree with medications over objection, as he lacks capacity given complete lack of insight into the presence of mental illness, irritability/agitation and inability to engage in the risks and benefits of treatment, ongoing delusions which are directing his behavior, and inability to provide for his own basic needs/safety without the care and assistance of others. Will order IM olanzapine for refusal of p.o. once he is on a 303 involuntary commitment per policy. -Continue MNPR. -Patient reports his mother lives locally, but is refusing to sign a release or allow staff to contact her. Continue to explore sources of collateral information/past treatment information. 08/23 -Previous records indicate history of paranoid Schizophrenia diagnosed years ago. Patient has been chronically noncompliant with treatment, and lacks all insight into his condition. -303 hearing held and granted. As 2 physicians have given an opinion in favor of medications over objection, will start olanzapine 5mg IM for refusal of 5mg bid PO. Although patient states he is allergic to this medication, he is not, as he has tolerated numerous doses during this hospital stay, with a reported effect of sedation, which she has been informed is not uncommon with this medication. He has been advised that if there are other antipsychotics he would be willing to take, we could try them, but has either declined to state what medications he has been on in the past, or at other times has denied ever taking antipsychotics. -He will likely require a 304 involuntary outpatient commitment. We will [facility] and requests that a [facility] be assigned. He will also need [facility] assistance for psychiatric care and therapy. -Continue to encourage him to allow involvement of family, which he has consistently declined both here and during previous outpatient treatment at [facility] [place]. 08/24 - Continue scheduled dosing of olanzapine 5mg BID; patient reporting it "helps me function", but unwilling to discuss further titration of the dose - Pt verbalizes willingness to continue medication after discharge; but is refusing to apply for MA, and has specific providers in mind - making referrals difficult at this time - It is likely that patient will require a 304 outpatient commitment in order to ensure outpatient follow-up given the current barriers he is placing in this process - Continue to gather collateral information as available - Continue MNPR, as patient continues to be delusional 08/25 -Continue olanzapine for now, but would be beneficial to transition to a long-acting injectable antipsychotic given his long history of nonadherence and lack of insight. -File for 304 hearing to be held next week. He will be discharged on [facility]. -Social work to contact the county to advise them of this plan so that aftercare can be arranged. -Continue private room and excuse patient from groups due to poor behavioral control. 08/26 -The patient remains quite delusional and has a number of fixed delusional beliefs. -His assertion remains that olanzapine is helpful to him and today he was willing to accept an increase in the dose of olanzapine from 5 mg twice a day to 5 mg in the morning and 10 mg at bedtime. -Nonadherence with outpatient treatment is an issue. The patient was able to discuss this today and tells me that sometimes he feels that his outpatient providers are "signaling" to him that they do not think that he is sick and, therefore, that he does not need treatmentso he drops out of treatment. We discussed this, and I told him that it would be very important for him to test his assumptions by asking the providers directly and by listening to the responses, rather than by trying to guess there meanings and intentions. (The patient was not willing to accept this advice and said, "if they are not professional enough to be direct with me than my should I do their job?") -To the best of my knowledge, the patient has not experienced substantial mood alterations for extended periods of time during the course of his psychotic illness, and my sense is that the patient is suffering from schizophrenia. 08/28 continue same pending 304 hearing, CM to determine if can return to [facility] as a [facility] patient. 08/29 - Pt requesting titration of olanzapine to 10mg BID, which seems appropriate - will provide a 5mg one-time dose, then adjust schedule to 10mg BID starting tomorrow morning - 304 hearing on 08/31 - to meet with representatives from the [facility] regarding aftercare options, as patient will likely be discharged on an outpatient 304 - Pt continues to refuse to complete paperwork for MA application 08/30 and 08/31 - Continue olanzapine 10mg BID - patient reporting morning sedation but was unwilling to adjust dosing to allow for higher bedtime dose 08/30 and 08/31 was too upset to engage in further discussion about medication changes, will reinitiate discussion with team regarding MALHOTRA options - 304 hearing scheduled for 08/31/19 at 0930 - Continues to refuse MA application - aftercare services will need to be arranged, as patient's behavior prior to admission suggests he remains at high risk of potential harm if he is not adequately engaged in outpatient psychiatric services and is unable to continue medications (2) Anxiety: 08/23 -history of anxiety NOS, through which she has previously taken benzodiazepines. Due to the risk of IM Zyprexa with benzodiazepine, will hold lorazepam for now. If his compliance improves and he is taking olanzapine orally, could consider resuming it if needed. 08/26 -In the past, the patient has insisted that the only class of medications that are needed by him are benzodiazepines. I would not recommend restarting benzodiazepines at this time. 08/29 - Pt reporting increased anxiety related to perceived injustice of admission - Discussed availability of hydroxyzine for anxiety; reviewed that benzodiazepines are not recommended, especially as he himself reports a 4-year history of "addiction" several years ago 08/30 - Pt reports benefit from prn dosing of hydroxyzine (3) Hypertension: 08/20 -Denies history of hypertension. Significant BP elevation in the ER improved following Ativan -Twice daily vitals for now -We will temporarily offer Ativan 1 mg p.o. every 4 hours as needed for anxiety 08/21 -As above, patient refusing medications at present but agrees to consider antihypertensive if blood pressure remains elevated this evening at which time we could consider a beta-bernie or PHILLY inhibitor if he is willing 08/22 -Patient remains mildly hypertensive (149/98), and continues to refuse antihypertensive medication. 08/23 -BP has normalized. Inventory Assets Strengths: Medically healthy, able to communicate Needs: Provision of safety, medication management Risk Factors Assessment Male: Yes : Yes Health Problems: No Mental Health Diagnoses: Yes Previous Psychiatric Hospitalization: Yes Protective Factors Assessment : No Responsible for Young Children: No Employed: No Stable Relationships: No Supportive Family: No Good Rapport with Provider: No Interval History Identifying Information KENDAL PAIGE is a 49-year-old M with a history of schizophrenia vs schizoaffective disorder and treatment noncompliance who currently lives alone and was admitted on 08/20/19 02:19 on a 302 involuntary commitment for psychosis, progressed to 303 on 08/23 and hearing for 304 08/31/19. Chief Complaint "you are violating my civil rights by keeping me here". Review of Systems Sleep Information Total Hours of Sleep: 6.5 Sleep Comments: awake at 0600 and now watching the tv as requested Meal Information Percent Meal Consumed - Breakfast: 100 Percent Meal Consumed - Lunch: 100 Percent Meal Consumed - Dinner: 100 Subjective Subjective Patient was seen & assessed and interval progress reviewed with treatment team. Reviewed full admission record today in preparation for 304 hearing, and met patient in his room today. He initially was very congenial and pleasant walking back to his room offering provider a seat on the opposite bed in his MNPR. Patient immediately focusses on how he believes he is unjustly hospitalized and is asking for discharge refuting the statements int he 302. Provider attempting to listen however patient asks many leading questions of the provider but then becomes angry if provider attempts to address his questions immediately reacting angrily to any assertion that he has demonstrated s/sx of mental illness on the unit let alone those noted in the initial 302. He fixates first that he does not have a major mental illness, and then later states an MD in [facility] said he may have schizoaffective disorder but states he has never been noncompliant with medic ations it is simply he has not been recommended to take them, and maintains adamantly with raised angry voice that he is taking his zyprexa here as recommended. He is not able to participate in discussing aftercare because of his anger stating he does not have insurance and complains about the burden of the cost of this hospitalization and yet is adamant he will not apply for MA. Provider cannot even iterate a sentence about the role of application for MA, and the role of the 304 comittment here (namely he is unable to tolerate the milieu or maintain behavior that is tolerated by others in the milieu requiring further titration of medications and possibly consideration of MALHOTRA) with plan for conversion to 304 outpatient comittment to assist with compliance with care given his risk of severe decompensation when not compliant with treatment. Patient is very clear and adamant and verbally angry today that he does not believe he needs to be here, maintains that the behaviors listed in the 302 petition are false and does not acknowledge any aspect of his symptoms here that indicate ongoing need for psychiatric admission. He states he is taking and tolerating zyprexa and denies side effects He denies other immediate concerns at this time although this is said in context of stating "I am done with this conversation!" Physical Exam Psychiatric Orientation: alert, oriented to person and oriented to place; + uncooperative Apperance: appropriately dressed and appropriately groomed Eye Contact: good eye contact Motor Behavior: n EPS and n akathisia he stands up and paces, throws his arms in the air and points angrily at his papers and list of rebuttals Speech: + loud speech (angry tone quickly escalating immediately as engaged in other greeting) not pressured but voluble and not redirectable Affect: + angry affect Mood: + angry mood Thought Process: + perseveration preoocupation and circular logic about his diagnosis, and recommended treatment and his inability to comply with treatment in the outpatinet setting historically and that his current behavior on the unit is not compatible wtih acceptable behavior in the community he did not share persecutory delusions or AVH or IOR today but also was not able to be directly asked not able to participate in this aspect of assessment not able to participate in this aspect of the assessment although he globally denies having any concerns that would warrant ongoing admission denying prior statements in 302/303 about homocidal threats to others does not show evidence of responding to internal stimuli today, again was unable to participate recent memory is impaired as he does either not recall or is in denial of events prior to admission or while admitted Estimated Intelligence: average estimated intelligence Insight: + severely impaired insight Judgement: + severely impaired judgement Vital Signs (Past 24 Hours) Last Vital Signs Temp 36.8 C 08/31/19 06:38 Pulse 81 08/31/19 06:39 Resp 18 08/31/19 06:38 BP 138/74 08/31/19 06:39 Pulse Ox 98 08/22/19 20:27 Results & Data Current Inpatient Medications Current Inpatient Medications: Current Inpatient Medications Acetaminophen (Tylenol) 650 mg PO Q4H PRN PRN Reason: Headache or Minor Fever Stop: 09/19/19 02:42 Last Admin: 08/30/19 08:29 Dose: 650 mg Documented by: Al Hydrox/Mg Hydrox/Simethicone (Maalox) 30 ml PO Q4H PRN PRN Reason: GI Upset Stop: 09/19/19 02:42 Benztropine Mesylate (Cogentin) 1 mg IM Q6H PRN PRN Reason: behavoral emergency Stop: 09/19/19 13:44 Bismuth Subsalicylate (Kaopectate) 15 ml PO PRN PRN PRN Reason: Loose Stool Stop: 09/19/19 02:42 Haloperidol Lactate (Haldol) 5 mg IM Q6H PRN PRN Reason: behavioral emergency Stop: 09/19/19 13:31 Hydroxyzine HCl (Vistaril) 50 mg PO HSZ PRN PRN Reason: Insomnia Stop: 09/19/19 02:49 Hydroxyzine HCl (Vistaril) 25 mg PO Q4H PRN PRN Reason: Anxiety Stop: 09/19/19 02:42 Last Admin: 08/30/19 20:00 Dose: 25 mg Documented by: Magnesium Hydroxide (Milk Of Magnesia) 30 ml PO DAILY PRN PRN Reason: Constipation Stop: 09/19/19 02:42 Olanzapine (Zyprexa) 5 mg PO Q6 PRN PRN Reason: Psychosis Stop: 09/19/19 05:59 Last Admin: 08/20/19 13:17 Dose: 5 mg Documented by: Olanzapine (Zyprexa) 5 mg IM BID PRN PRN Reason: refusal of PO Stop: 09/22/19 10:30 Last Admin: 08/23/19 11:13 Dose: 5 mg Documented by: Olanzapine (Zyprexa Zydis Od) 10 mg PO BID KRISH Stop: 09/28/19 20:59 Last Admin: 08/30/19 20:48 Dose: 10 mg Documented by: Sodium Chloride ([place] Nasal) 1 - 2 sprays NA PRN PRN PRN Reason: Nasal Dryness/Congestion Stop: 09/19/19 02:42 (1) Schizophrenia Schizophrenia type: paranoid schizophrenia Qualified Code(s): F20.0 - Paranoid schizophrenia
[2019-08-31] MEDS: OLANZAPINE ZYDIS 10 MG ORALLY DIS. TAB PO SCH ×2 (08:31→20:28)
[2019-09-01] MEDS: OLANZAPINE ZYDIS 10 MG ORALLY DIS. TAB PO SCH ×2 (08:22→20:35)
--- NOTE | 2019-09-01 12:25 | Psychiatric Progress Note ---
Date of Service September 01, 2019 Impression / Recommendations Impression 49-year-old gentleman with a long-standing history of schizophrenia versus schizoaffective disorder, multiple previous inpatient hospitalizations, and noncompliance with outpatient treatment who presented on a 302 warrant with significant delusional preoccupation, delusions of reference and grandiosity paranoia, agitation, and hallucinations, for which he was involuntarily admitted. He has been more cooperative with medication, but continues to lacks insight into his illness or the need for treatment. He is on a 303 involuntary commitment with medications over objection. He will remain in a private room due to his psychosis and delusions of persecution, ongoing agitation and threats. 304 hearing scheduled for 08/31. Medication over objection has been ordered, but the patient, so far, has been cooperative with Zyprexa - titrating as tolerated. He remains unwilling to proceed with MA application in order to be followed by the [facility] on an outpatient commitment - will continue to discuss appropriate and safe discharge planning. (1) Schizophrenia: 08/20 -Patient admitted on an involuntary commitment to the behavioral health unit. He will be maintained on regular safety checks with twice daily vitals. We will initially try to minimize stimulation until he is able to appropriately interact in the milieu -I attempted to educate him about circumstances, implications of 302, and answer questions however pt poorly able to engage logically due to paranoia -will consider potential need for additional medical w/w as more becomes known - he does not appear to be in withdrawal. UDS negative. -We will offer olanzapine 5 mg p.o. twice daily for psychosis and 5mg q6h prn (DNE 20mg in 24h) -Will utilize Haldol 5 mg IM, 2 mg Ativan, 1 mg Cogentin every 6 hours as needed for behavioral emergency -We will expand database as able 08/21 - Unfortunately patient appears likely to refuse antipsychotic treatment and may ultimately require medications over objection. Presently, in my opinion, the patient is felt to lack the capacity to make informed treatment decisions due to psychosis and associated delusional/illogical thought process and con tent. In my opinion medications over objection would be a reasonable and appropriate treatment intervention at this time. - will offer ativan 0.5mg po qhs tonight for sleep/agitation 08/22 -Patient remains delusional, paranoid, and easily agitated. He is refusing all medications. -File for 303 hearing to be held tomorrow. Agree with medications over objection, as he lacks capacity given complete lack of insight into the presence of mental illness, irritability/agitation and inability to engage in the risks and benefits of treatment, ongoing delusions which are directing his behavior, and inability to provide for his own basic needs/safety without the care and assistance of others. Will order IM olanzapine for refusal of p.o. once he is on a 303 involuntary commitment per policy. -Continue MNPR. -Patient reports his mother lives locally, but is refusing to sign a release or allow staff to contact her. Continue to explore sources of collateral information/past treatment information. 08/23 -Previous records indicate history of paranoid Schizophrenia diagnosed years ago. Patient has been chronically noncompliant with treatment, and lacks all insight into his condition. -303 hearing held and granted. As 2 physicians have given an opinion in favor of medications over objection, will start olanzapine 5mg IM for refusal of 5mg bid PO. Although patient states he is allergic to this medication, he is not, as he has tolerated numerous doses during this hospital stay, with a reported effect of sedation, which she has been informed is not uncommon with this medication. He has been advised that if there are other antipsychotics he would be willing to take, we could try them, but has either declined to state what medications he has been on in the past, or at other times has denied ever taking antipsychotics. -He will likely require a 304 involuntary outpatient commitment. We will notify the [facility] and requests that a [facility] be assigned. He will also need [facility] assistance for psychiatric care and therapy. -Continue to encourage him to allow involvement of family, which he has consistently declined both here and during previous outpatient treatment at [facility]. 08/24 - Continue scheduled dosing of olanzapine 5mg BID; patient reporting it "helps me function", but unwilling to discuss further titration of the dose - Pt verbalizes willingness to continue medication after discharge; but is refusing to apply for MA, and has specific providers in mind - making referrals difficult at this time - It is likely that patient will require a 304 outpatient commitment in order to ensure outpatient follow-up given the current barriers he is placing in this process - Continue to gather collateral information as available - Continue MNPR, as patient continues to be delusional 08/25 -Continue olanzapine for now, but would be beneficial to transition to a long-acting injectable antipsychotic given his long history of nonadherence and lack of insight. -File for 304 hearing to be held next week. He will be discharged on [facility]. -Social work to contact the county to advise them of this plan so that aftercare can be arranged. -Continue private room and excuse patient from groups due to poor behavioral control. 08/26 -The patient remains quite delusional and has a number of fixed delusional beliefs. -His assertion remains that olanzapine is helpful to him and today he was willing to accept an increase in the dose of olanzapine from 5 mg twice a day to 5 mg in the morning and 10 mg at bedtime. -Nonadherence with outpatient treatment is an issue. The patient was able to discuss this today and tells me that sometimes he feels that his outpatient providers are "signaling" to him that they do not think that he is sick and, therefore, that he does not need treatmentso he drops out of treatment. We discussed this, and I told him that it would be very important for him to test his assumptions by asking the providers directly and by listening to the responses, rather than by trying to guess there meanings and intentions. (The patient was not willing to accept this advice and said, "if they are not professional enough to be direct with me than my should I do their job?") -To the best of my knowledge, the patient has not experienced substantial mood alterations for extended periods of time during the course of his psychotic illness, and my sense is that the patient is suffering from schizophrenia. 08/28 continue same pending 304 hearing, CM to determine if can return to [facility] as a [facility] patient. 08/29 - Pt requesting titration of olanzapine to 10mg BID, which seems appropriate - will provide a 5mg one-time dose, then adjust schedule to 10mg BID starting tomorrow morning - 304 hearing on 08/31 - to meet with representatives from the [facility] regarding aftercare options, as patient will likely be discharged on an outpatient 304 - Pt continues to refuse to complete paperwork for MA application 08/30 and 08/31 - Continue olanzapine 10mg BID - patient reporting morning sedation but was unwilling to adjust dosing to allow for higher bedtime dose 08/30 and 08/31 was too upset to engage in further discussion about medication changes, will reinitiate discussion with team regarding [facility] options - 304 hearing scheduled for 08/31/19 at 0930 - Continues to refuse MA application - aftercare services will need to be arranged, as patient's behavior prior to admission suggests he remains at high risk of potential harm if he is not adequately engaged in outpatient psychiatric services and is unable to continue medications 09/01 -Today, the patient is voicing no delusional beliefs. When asked about his previous delusional beliefs the patient said that he feels that he may have "overreacted" to certain things that it happened prior to his admission and he says that his plan is to "be civil" with his neighbors and avoid anything other than a casual, pleasant contact. Mr. Paige has a history of persistent, fixed delusional beliefs. Although he is not currently voicing any, and his perhaps likely that he may continue to harbor certain beliefs. Nevertheless, he seems to at least have insight into the fact that these beliefs are not held by other people. On the unit, the patient has been reality based recently and appropriate in therapy groups and in the milieu. -The patient tells us that he has responded favorably to olanzapine 10 mg twice a day. He noted that, initially, he may have noted some excess sedation but this is largely resolved. Specifically, the patient reports that he is less anxious, and in a significantly better mood". -On examination, the patient's previous mood irritability seems to have resolved. (2) Anxiety: 08/23 -history of anxiety NOS, through which she has previously taken benzodiazepines. Due to the risk of IM Zyprexa with benzodiazepine, will hold lorazepam for now. If his compliance improves and he is taking olanzapine orally, could consider resuming it if needed. 08/26 -In the past, the patient has insisted that the only class of medications that are needed by him are benzodiazepines. I would not recommend restarting benzodiazepines at this time. 08/29 - Pt reporting increased anxiety related to perceived injustice of admission - Discussed availability of hydroxyzine for anxiety; reviewed that benzodiazepines are not recommended, especially as he himself reports a 4-year history of "addiction" several years ago 08/30 - Pt reports benefit from prn dosing of hydroxyzine 09/01 -The patient continues to report a favorable response to hydroxyzine, and notes that he prefers this medication to benzodiazepine such as lorazepam because he finds hydroxyzine to be less sedating and, also, he is aware that is not physically habituating. (In the past there have been concerns about the patient's possible misuse of benzodiazepines,) -The patient's affect is more sanguine, and he reports that his feelings of anxiety have improved significantly. Present on Admission?: Yes (3) Hypertension: 08/20 -Denies history of hypertension. Significant BP elevation in the ER improved following Ativan -Twice daily vitals for now -We will temporarily offer Ativan 1 mg p.o. every 4 hours as needed for anxiety 08/21 -As above, patient refusing medications at present but agrees to consider antihypertensive if blood pressure remains elevated this evening at which time we could consider a beta-bernie or PHILLY inhibitor if he is willing 08/22 -Patient remains mildly hypertensive (149/98), and continues to refuse antihypertensive medication. 08/23 -BP has normalized. Inventory Assets Strengths: Medically healthy, able to communicate Needs: Provision of safety, medication management Risk Factors Assessment Male: Yes : Yes Health Problems: No Mental Health Diagnoses: Yes Previous Psychiatric Hospitalization: Yes Hopelessness: No Smoker: No Protective Factors Assessment : No Responsible for Young Children: No Employed: No Stable Relationships: No Supportive Family: No Good Rapport with Provider: No Absence of Any Risk Factors Above: No Interval History Identifying Information KENDAL PAIGE is a 49-year-old M with a history of schizophrenia vs schizoaffective disorder and treatment noncompliance who currently lives alone and was admitted on 08/20/19 02:19 on a 302 involuntary commitment for psychosis, progressed to 303 on 08/23 and hearing for 304 08/31/19. Chief Complaint " I think I am doing well. The medicine is helping.". Review of Systems Sleep Information Total Hours of Sleep: 5.25 Sleep Comments: up to the bathroom at 0445-back to bed/sleep then awake for 0600 to watch TV Meal Information Percent Meal Consumed - Breakfast: 100 Percent Meal Consumed - Lunch: 100 Percent Meal Consumed - Dinner: 100 Subjective Subjective Patient was seen & assessed and interval progress reviewed with treatment team. The patient was seen individually in order to assess his current mental status, evaluate his response to treatment, coordinate with the patient any necessary changes in his treatment regimen, and address issues and concerns that may arise. The patient tells me that he feels that he is tolerating olanzapine (at a current dose of 20 mg a day) well and without any noted side effects. He also says that he feels that hydroxyzine has been more effective in managing his anxiety because it is common for him, less sedating than the benzodiazepines that he is used in the past and that he does not wish to continue to take any medication that could be habit forming. He does not spontaneously make reference to any of the delusional beliefs that he had been endorsing earlier in the hospital stay and when questioned about them he replied by saying that he thinks that he may have "overreacted" to certain things that were going on and that his hope is to be able to return home, peacefully coexist with his neighbors, and go about his usual activities. He specifically denies any thoughts of causing physical harm to the person or property of others, and he also continues to report that he is not having any thoughts of suicide. We discussed the possibility of switching his medication to a long-acting Depo antipsychotic medication, but the patient said that he is committed to taking his medication orally and on a daily basis, and said he would prefer not to be switched to a Depo medication, particularly if that would mean changing medications (which it would). Physical Exam Psychiatric Orientation: alert, oriented x 3 and cooperative Apperance: appropriately dressed, appropriately groomed and appeared stated age Eye Contact: + fair eye contact Motor Behavior: steady gait and station Speech: normal rate/rhythm/volume of speech Affect: + blunted affect "Good mood. My mood is fine." Thought Process: goal directed thought process and linear/logical thought process Thought Content: reality based without delusions (The patient remains somewhat guarded about his previously stated delusional beliefs, but does not voice any today.) Suicidal Thoughts: denies suicidal thoughts Homicidal Thoughts: denies homicidal thoughts Specifically, the patient says that he holds no ill will towards his neighbors. He says that he thinks that he overreacted, and that his neighbors may have overreacted as well, and his plan is to be "civil" endplates of the neighbors, and avoid contact in conflict. Hallucinations: no auditory hallucinations Cognition: recent memory grossly intact, remote memory grossly intact and attention grossly intact Estimated Intelligence: + above average estimated intelligence Insight: + limited insight The patient says that he does understand the need for him to take psychiatric medications, but he is still unwilling to accept that his diagnosis is schizophrenia. Instead, he says that his main problem is "anxiety". Judgement: + fair judgement Vital Signs (Past 24 Hours) Last Vital Signs Temp 36.5 C 09/01/19 06:43 Pulse 71 09/01/19 06:44 Resp 18 09/01/19 06:43 BP 91/61 L 09/01/19 06:44 Pulse Ox 98 08/22/19 20:27 Results & Data Current Inpatient Medications Current Inpatient Medications: Current Inpatient Medications Acetaminophen (Tylenol) 650 mg PO Q4H PRN PRN Reason: Headache or Minor Fever Stop: 09/19/19 02:42 Last Admin: 08/30/19 08:29 Dose: 650 mg Documented by: Al Hydrox/Mg Hydrox/Simethicone (Maalox) 30 ml PO Q4H PRN PRN Reason: GI Upset Stop: 09/19/19 02:42 Benztropine Mesylate (Cogentin) 1 mg IM Q6H PRN PRN Reason: behavoral emergency Stop: 09/19/19 13:44 Bismuth Subsalicylate (Kaopectate) 15 ml PO PRN PRN PRN Reason: Loose Stool Stop: 09/19/19 02:42 Haloperidol Lactate (Haldol) 5 mg IM Q6H PRN PRN Reason: behavioral emergency Stop: 09/19/19 13:31 Hydroxyzine HCl (Vistaril) 50 mg PO HSZ PRN PRN Reason: Insomnia Stop: 09/19/19 02:49 Hydroxyzine HCl (Vistaril) 25 mg PO Q4H PRN PRN Reason: Anxiety Stop: 09/19/19 02:42 Last Admin: 08/31/19 12:19 Dose: 25 mg Documented by: Magnesium Hydroxide (Milk Of Magnesia) 30 ml PO DAILY PRN PRN Reason: Constipation Stop: 09/19/19 02:42 Olanzapine (Zyprexa) 5 mg PO Q6 PRN PRN Reason: Psychosis Stop: 09/19/19 05:59 Last Admin: 08/20/19 13:17 Dose: 5 mg Documented by: Olanzapine (Zyprexa) 5 mg IM BID PRN PRN Reason: refusal of PO Stop: 09/22/19 10:30 Last Admin: 08/23/19 11:13 Dose: 5 mg Documented by: Olanzapine (Zyprexa Zydis Od) 10 mg PO BID KRISH Stop: 09/28/19 20:59 Last Admin: 09/01/19 08:22 Dose: 10 mg Documented by: Sodium Chloride ([place] Nasal) 1 - 2 sprays NA PRN PRN PRN Reason: Nasal Dryness/Congestion Stop: 09/19/19 02:42 Mental Health & Subst Abuse Tx Performance Improvement Consultant Name of Performance Improvement Consultant: [facility] Phone Number for Performance Improvement Consultant: [phone] Date of Appointment with Performance Improvement Consultant: 09/05/19 Time of Appointment with Performance Improvement Consultant: 9:00 a.m. Case Management Appointment Comment: [facility], [address], [place] [facility] Discharge Appointments Contact Information Discharge Discharge Address: [address] [place] [address], [place] [address] (1) Schizophrenia Schizophrenia type: paranoid schizophrenia Qualified Code(s): F20.0 - Paranoid schizophrenia
[2019-09-02] MEDS: ACETAMINOPHEN 325 MG TAB PO PRN ×2 (00:53→06:42)
[2019-09-02] MEDS: OLANZAPINE ZYDIS 10 MG ORALLY DIS. TAB PO SCH (08:45)
--- NOTE | 2019-09-02 13:10 | Discharge Summary ---
Date of Service September 02, 2019 History of Present Illness Patient admitted on a 302 involuntary commitment through the ER. Per ER note 08/19/2019, patient presented for mental health evaluation. Petitioning statement indicating patient uncommonly leaves his house, lost a lot of weight in the past month, plays loud music and screams. Reportedly calling people at a nearby car dealership "on [place]" recently and indicated that he was going to kill them. Police were called and then called again. The report is that he was provoking fights. Reportedly he believes others are spying on him with drones. Patient reported to ER provider that his neighbors were harassing him, that he can read their minds, he indicated a plot in his own mind to get rid of him. He believed his neighbor was employed by his father whom he does not talk to. Indicated that he has lived here for 3 years and needs to solve a case of a missing person whom he believes the spirit of and habits his home. He mentioned that he smoked cigarettes to get rid of demons. Stated that he is not a violent person but will fight if necessary. States he has killed 12 people in his mind. Reported multiple prior hospitalizations for sleep deprivation which she stated was due to technology. Only noted home medication was Propecia. Past medical history denied. Review of systems is negative. He was medically cleared apart from elevated blood pressure which improved significantly following 2 mg of Ativan. He was initially resistant to p.o. medications. Per ER physician, when informed of 302 he requested to be euthanized instead. When I was called about this patient overnight I advised he receive a dose of Zyprexa in the ER prior to transport to the unit due to his agitation, active psychosis, and unwillingness to comply with treatment recommendations in the ER however it appears he was brought up to the [facility] and did not receive the 5 mg of olanzapine until 0714 this morning. He has not been physically aggressive. His 302 is up on August 24 at 22:12. He is grossly psychotic with significant delusional thought content, paranoia, and this impacts his willingness to participate in psychiatric interview this morning. He asserts that I know more than I am telling him and seems in disbelief that I have never heard his name before. He asks me about Crystal Robert, the [employer] [facility] student who went missing many years ago now. He states that he is the reason that she went missing because he last saw her 2 years before she disappeared. He then later reports that he has seen her twice since she disappeared, once walking around town and once just her head on a shelf. He admits that this is unusual but offers no explanation. He also reports that her spirit is with him all the time, is with him presently. He expresses a belief that people can see through his eyes, make him say things and do things. He reports that this is happening all over [place] now and there is nothing to be done about it. He denies that he has been violent or hurt anyone however he later states that he is killed 12 people with his mind but that does not count because it cannot be proven. He describes stress at home as "coming to me" and seems to feel victimized by his neighbors. He reports that his neighbor "forced me to call him nigger over and over again and I am the one that ends up here?" He does not perceive need for mental health treatment. He endorses believe the people can read his thoughts. He describes systemized delusions about being a fighter and the [employer], being recruited by Shalonda from the band [employer], and that Jatin Quan now has killed people because of him. He states that there is nothing wrong with him, that he has no mental or physical health problems. He does acknowledge that he has seen a psychiatrist in the past in [place], last perhaps 3 years ago, but denies that he has needed medication for treatment. He states that it was very not nice to meet me today and seems to perceive that I am part of a conspiracy against him. Physical Exam Psychiatric Orientation: alert, oriented x 3 and cooperative Apperance: appropriately dressed and appropriately groomed Eye Contact: + fair eye contact Motor Behavior: steady gait and station Speech: normal rate/rhythm/volume of speech Affect: + constricted affect Patient reports that he is in a "good mood" and rates it as "maybe 10 out of 10" (this is inconsistent with his affect.) Thought Process: linear/logical thought process Thought Content: reality based without delusions No delusional material was elicited in the patient's thought content. He does contradict himself at times. For example, yesterday he acknowledged that he had been playing loud music in his apartment but did not believe that his neighbor disturbed by it. Today, he tells me that he never plays loud music and when I reminded him that he had said differently yesterday, he said "well, not very loud." Suicidal Thoughts: denies suicidal thoughts Homicidal Thoughts: denies homicidal thoughts When specifically asked if he was having any thoughts of retaliating against his neighbors or against anyone else, the patient assured me that he is having no such thoughts and hopes to be able to simply live in peace with his neighbors and avoid unnecessary contact. Hallucinations: no auditory hallucinations Cognition: recent memory grossly intact, remote memory grossly intact and language grossly intact Estimated Intelligence: + above average estimated intelligence Insight: + poor insight The patient continues to say that he has difficulty accepting the diagnosis of schizophrenia and indicates that we are considering to be his delusional beliefs are customer service representative teacher of things that have actually happened. Judgement: + fair judgement The patient indicates that he intends to fully adhere to outpatient treatment. However, he has a history of nonadherence with outpatient treatment consistently in the community. Vital Signs (Past 24 Hours) Last Vital Signs Temp 36.6 C 09/02/19 10:38 Pulse 98 H 09/02/19 10:38 Resp 18 09/02/19 10:38 BP 97/61 L 09/02/19 10:38 Pulse Ox 98 09/02/19 10:38 Principal Diagnosis Schizophrenia. Psychiatric Data During the course of hospitalization the patient was offered various modalities of psychiatric treatment and education. These included individual, group, activity, and milieu therapies. In addition, the patient was placed on psychiatric medications, namely olanzapine. Initially the patient was uncooperative with treatment and frequently made statements that indicated a plan to estella the hospital and the staff. However, with time, and after beginning medication, the patient became more cooperative and more pleasant. After initially resisting psychiatric medications, he eventually agreed to voluntarily take olanzapine, the dose of this medication was titrated to olanzapine 10 mg twice a day. The patient reports that he tolerates olanzapine well and feels that it is "helpful" although he has some difficulty saying what way it is helpful, other than that relieves anxiety. He also reports a favorable response to as needed hydroxyzine and says that he feels this is much more effective in his case than benzodiazepines have been in the past. We discussed using a long- acting antipsychotic medication, in Depo form. However, the patient said that he feels that this is not necessary because he does fully intend to cooperate with outpatient treatment, including taking medications as prescribed. By the time of discharge, the patient was not voicing delusional material. Typically, the patient spontaneously describes delusional believes, and while he may continue to harbor these believes, he now is able to avoid talking about them. We have petition to have his 304 commitment converted to outpatient commitment given his long history of nonadherence with outpatient treatment. We feel that the patient has received maximum benefit from inpatient treatment and although he will remain a serious risk of physical harm to self or others without ongoing active psychiatric treatment, treatment may now be safely provided on patient basis. Day of Discharge Assessment On the day of discharge, the patient was pleasant, cooperative, and somewhat "businesslike." His speech was spontaneous and delivered at a normal rate and volume. He was appropriately dressed and groomed. His thought processes demonstrated tight associations, although he was fairly superficial. The patient's thought content did not reveal any delusional material, and no delusional beliefs were precipitated during the discharge interview. He does say that at least some of the things that he believed previously were actually based in reality, but he appears to be with them as a "memory" rather than something that is currently happening. Because of the animosity that we sense that may have existed between him and other persons in the community, he was specifically asked if he was having any thoughts of retaliating or otherwise causing some form of harm to his neighbors or others in the community. The patient has consistently reported that he is having no thoughts of ill will towards these individuals and says that he believes that they were acting in good feng, but may have "overreacted," as may have he. Transition of Care Transition Of Care Record: was reviewed with the patient Advance Directives Advance Directives Information Provided: Yes Advance Directives: No Mental Health Advance Directive: No Advance Directives on File: No Living Will: No Power of Gate Cutter: No Advance Directives Reason:: Declines as Mental Health Visit. Risk Factors Assessment Nonadherence with treatment. Psychotic illness. History of making direct threats of physical harm to the person or property of others. Male: Yes : Yes Do You Have Access To A Gun?: No Health Problems: No Mental Health Diagnoses: Yes Substance Use Disorders: No Previous Attempt: No Previous Psychiatric Hospitalization: Yes Hopelessness: No Smoker: No Protective Factors Assessment : No Responsible for Young Children: No Employed: No Stable Relationships: No Supportive Family: No Good Rapport with Provider: No Absence of Any Risk Factors Above: No Tobacco Cessation at Discharge Tobacco Cessation Medication Prescribed at Discharge: Not Applicable/Non-Smoker Total Time Total Time Spent: Greater Than 30 Minutes Total Time Includes: Examination of the patient, Discharge Planning, Medication Reconciliation and Communication with other providers Discharge Data Lab Results 08/19/19 08/19/19 08/19/19 18:48 18:48 18:48 WBC 11.59 H RBC 4.58 L Hgb 14.7 Hct 41.1 L MCV 89.7 MCH 32.1 MCHC 35.8 RDW Std Deviation 41.6 RDW Coeff of Tami 12.7 Plt Count 275 MPV 9.3 Immature Gran % (Auto) 0.3 Neut % (Auto) 65.3 Lymph % (Auto) 24.0 Morrill % (Auto) 8.0 Eos % (Auto) 2.0 Baso % (Auto) 0.4 Immature Gran # (Auto) 0.03 H Neut # (Auto) 7.57 H Lymph # (Auto) 2.78 Morrill # (Auto) 0.93 H Eos # (Auto) 0.23 Baso # (Auto) 0.05 Sodium 137 Potassium 3.7 Chloride 105 Carbon Dioxide 24 Anion Gap 8.0 BUN 18 Creatinine 1.06 Est Cr Clr Drug Dosing 71.7 Est GFR ( Amer) 93.7 Est GFR (Non-Af Amer) 80.9 BUN/Creatinine Ratio 16.7 Glucose 95 Fasting Glucose Calcium 9.6 Total Bilirubin 0.3 AST 30 ALT 32 Alkaline Phosphatase 48 Total Protein 7.5 Albumin 4.2 Globulin 3.3 Albumin/Globulin Ratio 1.3 Triglycerides Cholesterol LDL Cholesterol, Calc VLDL Cholesterol, Calc HDL Cholesterol Cholesterol/HDL Ratio TSH 2.050 Urine Color Urine Appearance Urine pH Ur Specific [place] Urine Protein Urine Glucose (UA) Urine Ketones Urine Blood Urine Nitrite Urine Bilirubin Urine Urobilinogen Ur Leukocyte Esterase Salicylates < 1.7 L Urine Opiates Screen Ur Methadone, Qual Acetaminophen < 2 L Urine Barbiturates Ur Phencyclidine (PCP) U Amphetamin/Meth Scrn MDMA (Ecstasy) Screen U Benzodiazepines Scrn Ur Cocaine Metabolite U Marijuana (THC) Screen Ethyl Alcohol mg/dL 08/19/19 08/19/19 08/19/19 18:48 19:40 19:40 WBC RBC Hgb Hct MCV MCH MCHC RDW Std Deviation RDW Coeff of Tami Plt Count MPV Immature Gran % (Auto) Neut % (Auto) Lymph % (Auto) [place] % (Auto) Eos % (Auto) Baso % (Auto) Immature Gran # (Auto) Neut # (Auto) Lymph # (Auto) [place] # (Auto) Eos # (Auto) Baso # (Auto) Sodium Potassium Chloride Carbon Dioxide Anion Gap BUN Creatinine Est Cr Clr Drug Dosing Est GFR ( Amer) Est GFR (Non-Af Amer) BUN/Creatinine Ratio Glucose Fasting Glucose Calcium Total Bilirubin AST ALT Alkaline Phosphatase Total Protein Albumin Globulin Albumin/Globulin Ratio Triglycerides Cholesterol LDL Cholesterol, Calc VLDL Cholesterol, Calc HDL Cholesterol Cholesterol/HDL Ratio TSH Urine Color Yellow Urine Appearance Clear Urine pH 5.5 Ur Specific [place] 1.012 Urine Protein Negative Urine Glucose (UA) Negative Urine Ketones Trace H Urine Blood Negative Urine Nitrite Negative Urine Bilirubin Negative Urine Urobilinogen Negative Ur Leukocyte Esterase Negative Salicylates Urine Opiates Screen Neg Ur Methadone, Qual Neg Acetaminophen Urine Barbiturates Neg Ur Phencyclidine (PCP) Neg U Amphetamin/Meth Scrn Neg MDMA (Ecstasy) Screen Neg U Benzodiazepines Scrn Neg Ur Cocaine Metabolite Neg U Marijuana (THC) Screen Neg Ethyl Alcohol mg/dL < 3.0 08/28/19 05:53 WBC RBC Hgb Hct MCV MCH MCHC RDW Std Deviation RDW Coeff of Tami Plt Count MPV Immature Gran % (Auto) Neut % (Auto) Lymph % (Auto) [place] % (Auto) Eos % (Auto) Baso % (Auto) Immature Gran # (Auto) Neut # (Auto) Lymph # (Auto) [place] # (Auto) Eos # (Auto) Baso # (Auto) Sodium Potassium Chloride Carbon Dioxide Anion Gap BUN Creatinine Est Cr Clr Drug Dosing Est GFR ( Amer) Est GFR (Non-Af Amer) BUN/Creatinine Ratio Glucose Fasting Glucose 101 H Calcium Total Bilirubin AST ALT Alkaline Phosphatase Total Protein Albumin Globulin Albumin/Globulin Ratio Triglycerides 115 Cholesterol 191 LDL Cholesterol, Calc 110 VLDL Cholesterol, Calc 23 HDL Cholesterol 58 Cholesterol/HDL Ratio 3 TSH Urine Color Urine Appearance Urine pH Ur Specific [place] Urine Protein Urine Glucose (UA) Urine Ketones Urine Blood Urine Nitrite Urine Bilirubin Urine Urobilinogen Ur Leukocyte Esterase Salicylates Urine Opiates Screen Ur Methadone, Qual Acetaminophen Urine Barbiturates Ur Phencyclidine (PCP) U Amphetamin/Meth Scrn MDMA (Ecstasy) Screen U Benzodiazepines Scrn Ur Cocaine Metabolite U Marijuana (THC) Screen Ethyl Alcohol mg/dL Hospital Course (1) Schizophrenia: 08/20 -Patient admitted on an involuntary commitment to the behavioral health unit. He will be maintained on regular safety checks with twice daily vitals. We will initially try to minimize stimulation until he is able to appropriately interact in the milieu -I attempted to educate him about circumstances, implications of 302, and answer questions however pt poorly able to engage logically due to paranoia -will consider potential need for additional medical w/w as more becomes known - he does not appear to be in withdrawal. UDS negative. -We will offer olanzapine 5 mg p.o. twice daily for psychosis and 5mg q6h prn (DNE 20mg in 24h) -Will utilize Haldol 5 mg IM, 2 mg Ativan, 1 mg Cogentin every 6 hours as needed for behavioral emergency -We will expand database as able 08/21 - Unfortunately patient appears likely to refuse antipsychotic treatment and may ultimately require medications over objection. Presently, in my opinion, the patient is felt to lack the capacity to make informed treatment decisions due to psychosis and associated delusional/illogical thought process and conten t. In my opinion medications over objection would be a reasonable and appropriate treatment intervention at this time. - will offer ativan 0.5mg po qhs tonight for sleep/agitation 08/22 -Patient remains delusional, paranoid, and easily agitated. He is refusing all medications. -File for 303 hearing to be held tomorrow. Agree with medications over objection, as he lacks capacity given complete lack of insight into the presence of mental illness, irritability/agitation and inability to engage in the risks and benefits of treatment, ongoing delusions which are directing his behavior, and inability to provide for his own basic needs/safety without the care and assistance of others. Will order IM olanzapine for refusal of p.o. once he is on a 303 involuntary commitment per policy. -Continue MNPR. -Patient reports his mother lives locally, but is refusing to sign a release or allow staff to contact her. Continue to explore sources of collateral information/past treatment information. 08/23 -Previous records indicate history of paranoid Schizophrenia diagnosed years ago. Patient has been chronically noncompliant with treatment, and lacks all insight into his condition. -303 hearing held and granted. As 2 physicians have given an opinion in favor of medications over objection, will start olanzapine 5mg IM for refusal of 5mg bid PO. Although patient states he is allergic to this medication, he is not, as he has tolerated numerous doses during this hospital stay, with a reported effect of sedation, which she has been informed is not uncommon with this medication. He has been advised that if there are other antipsychotics he would be willing to take, we could try them, but has either declined to state what medications he has been on in the past, or at other times has denied ever taking antipsychotics. -He will likely require a 304 involuntary outpatient commitment. We will notify the [facility] and requests that a BCM be assigned. He will also need [facility] assistance for psychiatric care and therapy. -Continue to encourage him to allow involvement of family, which he has consistently declined both here and during previous outpatient treatment at [facility]. 08/24 - Continue scheduled dosing of olanzapine 5mg BID; patient reporting it "helps me function", but unwilling to discuss further titration of the dose - Pt verbalizes willingness to continue medication after discharge; but is refusing to apply for MA, and has specific providers in mind - making referrals difficult at this time - It is likely that patient will require a 304 outpatient commitment in order to ensure outpatient follow-up given the current barriers he is placing in this process - Continue to gather collateral information as available - Continue MNPR, as patient continues to be delusional 08/25 -Continue olanzapine for now, but would be beneficial to transition to a long-acting injectable antipsychotic given his long history of nonadherence and lack of insight. -File for 304 hearing to be held next week. He will be discharged on [facility]. -Social work to contact the [facility] to advise them of this plan so that aftercare can be arranged. -Continue private room and excuse patient from groups due to poor behavioral control. 08/26 -The patient remains quite delusional and has a number of fixed delusional beliefs. -His assertion remains that olanzapine is helpful to him and today he was willing to accept an increase in the dose of olanzapine from 5 mg twice a day to 5 mg in the morning and 10 mg at bedtime. -Nonadherence with outpatient treatment is an issue. The patient was able to discuss this today and tells me that sometimes he feels that his outpatient providers are "signaling" to him that they do not think that he is sick and, therefore, that he does not need treatmentso he drops out of treatment. We discussed this, and I told him that it would be very important for him to test his assumptions by asking the providers directly and by listening to the responses, rather than by trying to guess there meanings and intentions. (The patient was not willing to accept this advice and said, "if they are not professional enough to be direct with me than my should I do their job?") -To the best of my knowledge, the patient has not experienced substantial mood alterations for extended periods of time during the course of his psychotic illness, and my sense is that the patient is suffering from schizophrenia. 08/28 continue same pending 304 hearing, CM to determine if can return to [facility] as a [facility] patient. 08/29 - Pt requesting titration of olanzapine to 10mg BID, which seems appropriate - will provide a 5mg one-time dose, then adjust schedule to 10mg BID starting tomorrow morning - 304 hearing on 08/31 - to meet with representatives from the [facility] regarding aftercare options, as patient will likely be discharged on an outpatient 304 - Pt continues to refuse to complete paperwork for MA application 08/30 and 08/31 - Continue olanzapine 10mg BID - patient reporting morning sedation but was unwilling to adjust dosing to allow for higher bedtime dose 08/30 and 08/31 was too upset to engage in further discussion about medication changes, will reinitiate discussion with team regarding [facility] options - 304 hearing scheduled for 08/31/19 at 0930 - Continues to refuse MA application - aftercare services will need to be arranged, as patient's behavior prior to admission suggests he remains at high risk of potential harm if he is not adequately engaged in outpatient psychiatric services and is unable to continue medications 09/01 -Today, the patient is voicing no delusional beliefs. When asked about his previous delusional beliefs the patient said that he feels that he may have "overreacted" to certain things that it happened prior to his admission and he says that his plan is to "be civil" with his neighbors and avoid anything other than a casual, pleasant contact. Mr. Goodwin has a history of persistent, fixed delusional beliefs. Although he is not currently voicing any, and his perhaps likely that he may continue to harbor certain beliefs. Nevertheless, he seems to at least have insight into the fact that these beliefs are not held by other people. On the unit, the patient has been reality based recently and appropriate in therapy groups and in the milieu. -The patient tells us that he has responded favorably to olanzapine 10 mg twice a day. He noted that, initially, he may have noted some excess sedation but this is largely resolved. Specifically, the patient reports that he is less anxious, and in a significantly better mood". -On examination, the patient's previous mood irritability seems to have resolved. 09/02/19 -While the patient may continue to harbor delusional believes, none were elicited today and the patient does not independently voice any such beliefs. It may be that the patient has come to recognize that others do not believe him, but in any event he seems to understand that these thoughts are not generally accepted by other people. -Patient has said that he does not experience auditory hallucinations. However, in the past he has been observed apparently responding to internal stimuli and has described receiving "messages" in a way that suggests that these have come to him through auditory hallucinations. Nevertheless, he does not appear to be experiencing perceptual disturbances at this point and reports that he is having none. - -The patient continues to report favorable response to antipsychotic medications without any noted difficulties. Mental Health & Subst Abuse Tx Psychiatrist Name of Psychiatrist: Cristine Blake Psychiatrist's Time of Appointment with Psychiatrist: Please follow up to schedule (utilize Thee's assistance) Psychiatric Appointment Comment: [phone] [facility] Psychiatrist Release of Information: Obtained, Reviewed and Signed Therapist Name of Therapist: Cristine Blake Therapist's Time of Therapist Appointment: Please follow up to schedule (utilize Thee's assistance) Therapy Appointment Comment: [phone] [facility] Therapist Release of Information: Obtained, Reviewed and Signed Photo Finisher Name of Photo Finisher: [facility] Phone Number for Photo Finisher: [phone] Date of Appointment with Photo Finisher: 09/05/19 Time of Appointment with Photo Finisher: 9:00 a.m. Case Management Appointment Comment: [address] [facility], [address], [place] Photo Finisher Release of Information: Obtained, Reviewed and Signed Post Discharge Appointments Smoking Cessation Counseling Tobacco Cessation Medication Prescribed at Discharge: Not Applicable/Non-Smoker Contact Information Discharge Discharge Address: [address] [place] [address], [place] [address] Discharge Plan Discharge Items Patient Disposition: Home - Self-Care Reason For Visit: UNSPECIFIED PSYCHOSIS Discharge Diagnosis: Schizophrenia Activity: Resume your previous activity Non-emergency contact: Psychiatrist and Passport Support Manager Call non-emergency contact if: you have any medication questions and your symptoms worsen Follow-up/Referrals: PCP,NO [Primary Care Provider] - Diet: Regular Addtl Attending Provider Instructions: Keep taking your medications as prescribed and keep your follow-up outpatient mental health appointments. Pending Studies at Discharge: No Stand-Alone Forms: [employer], Smoking Cessation, Suicide Prevention Resources Medications and DC Order Prescriptions: New hydroxyzine HCl 25 mg Tablet 25 mg PO Q4H PRN (Reason: Anxiety) Qty: 60 RF: 1 olanzapine 10 mg tablet 10 mg PO BID Qty: 60 RF: 0 Continued finasteride [Propecia] 1 mg Tablet 1 mg PO DAILY RF: 0 Discharge Orders: Discharge Order (Routine); Ordered 09/02/19 Ordered By: Davy Rebolledo Admission Data Admit Date/Time: 08/20/19 02:19 Attending Provider: Davy Rebolledo Admit Provider: Fortunato Mcdonald Primary Care Provider: PCP,NO Other Interventions: Discharge Summary Assessment (RN) Last Done: 09/02/19 10:38 PSY Interdisciplinary Discharge Planning Last Done: 09/02/19 10:39 Coding [place] [address] D/C day mgmt > 30 min Patient Type Established History Expanded Problem Focused Exam Expanded Problem Focused Medical Decision Making Moderate Complexity Diagnoses Schizophrenia F20.0 Schizophrenia type: paranoid schizophrenia Time Spent (min) 50
== END 2019-09-02 13:20 | disposition home or self-care (01) | DRG 885 ==
LOC: ED 18:04 → 3S 08-20 02:19 → SUATTDRO 08-20 02:19 → 3S 08-20 02:29